=== PATIENT | male | born 1930 | race African-American/Black ===

== ENCOUNTER 2016-11-20 23:46 | Inpatient (IN) ==
[2016-11-21] MEDS ORDERED: PANTOPRAZOLE 40 MG VIAL IV STA (00:52)
[2016-11-21] MEDS ORDERED: ONDANSETRON 4 MG/2 ML VIAL IV STA (00:52)
[2016-11-21] MEDS ORDERED: SODIUM CHLORIDE 0.9% 500 ML IV STA (00:52)
--- NOTE | 2016-11-21 00:56 | Emergency Department Note ---
Rudy Juarez Rolonda, am scribing for, and in the presence of, Eamon Koch MD 00:54. August Juarez Charles R, MD, personally performed the services described in this documentation, ascribed by Ryenaldo Grant in my presence, and it is both accurate and complete . Arrival - Arrival Chief Complaint: GI Bleed/Rectal Stated Complaint: GI bleed ED Nursing Triage Note: C/O Blood in stool. Onset 1400 today while having a bowel movement. Pt was transferred from [facility] for further evaluation of GI bleeding and Low H/H. Mode of Arrival: Stretcher Source: Patient, Old Records Reviewed, RN Notes Reviewed - History of Present Illness HPI Narrative: Pt is an 86 y/o male who arried to the Ed via EMS for further evaluation of blood in the stool wit an onset of earlier today. Pt has a PMHx of HTN and a SHx of EtOh usage. Nurses' note states that pt was transferred from [facility]. He denies any pain, SOB, weakness, and smoking but confirms having a black stool. No other complaint/pain in ED. Onset (ago): hour(s) Consistency: constant Severity: moderate Severity scale (1-10): 4 Allergies/Adverse Reactions: Allergies Allergy/AdvReac Type Severity Reaction Status Date / Time No Known Allergies Allergy Verified 11/20/16 23:50 Home Medications: Home Medications Medication Instructions Recorded Confirmed Type Aspirin 325 mg PO DAILY 11/20/16 11/20/16 History Atorvastatin [Lipitor] 20 mg PO DAILY 11/20/16 11/20/16 History Furosemide Tab [Lasix Tab] 40 mg PO BID DIURETIC 11/20/16 11/20/16 History Losartan [Cozaar] 100 mg PO DAILY 11/20/16 11/20/16 History Review of System - Review of System 12 point system: reviewed and no additional remarkable complaints except as stated - Review of System Constitutional: Absent: chills, fever, weakness Head/Ears/Nose/Throat: Absent: earache, epistaxis Respiratory: Absent: cough, respiratory distress Cardiovascular: Absent: chest pain, dyspnea on exertion Gastrointestinal: Present: hematochezia (black). Absent: abdominal pain, nausea , vomiting, diarrhea Musculoskeletal: Absent: arm pain, back pain, leg pain, neck pain Skin: Absent: rash Neurological: Absent: headache, weakness, vertigo Medical,Surgical,& Family Hx - Medical History Cardio: History of: Hypertension - Social History Smoking Status: Never smoker Frequency of Alcohol Use: Occasionally Type of Drug Use: None Exam Vital Signs: Vital Signs Temperature 98.3 F 11/20/16 23:51 Pulse Rate 51 L 11/20/16 23:51 Respiratory Rate 16 11/20/16 23:51 Blood Pressure 145/60 11/20/16 23:51 O2 Sat by Pulse Oximetry 97 11/20/16 23:51 - General General appearance: alert, in no apparent distress - Head Head exam: Present: atraumatic, normocephalic - Eye Eye exam: Present: PERRL, EOMI. Absent: normal appearance (pale conjunctiva ) - ENT ENT exam: Present: mucous membranes moist. Absent: mucous membranes dry - Neck Neck exam: Present: full ROM. Absent: tenderness - Chest Chest inspection: Present: symmetric chest wall rise. Absent: tenderness - Respiratory Respiratory exam: Present: normal lung sounds bilaterally. Absent: wheezes - Cardiovascular Cardiovascular exam: Present: normal rhythm, bradycardia - Abdominal Exam Abdominal exam: Present: soft, normal bowel sounds. Absent: distention - Rectal Exam Rectal exam: Present: heme (+) stool, black stool - Extremities Exam Extremities exam: Present: full ROM. Absent: tenderness - Back Exam Back exam: Present: full ROM. Absent: tenderness - Neurological Exam Neurological exam: Present: alert, oriented X3, CN II-XII intact - Psychiatric Psychiatric exam: Present: normal affect, normal mood - Skin Skin exam: Present: warm, dry, intact, normal color. Absent: rash Course - Consultations Consultation #1: Hospitalist will admit patient Time: 00:55 Results - Labs Lab Results: I have reviewed the patients labs Labs: All results from previous facility reviewed Disposition Clinical Impression: Lower gastrointestinal hemorrhage, Melena Case discussed with: patient Disposition: Still a Patient Condition: Stable Time of Disposition: 00:55
[2016-11-21] MEDS ORDERED: ONDANSETRON 4 MG/2 ML VIAL ONE (01:13)
[2016-11-21] MEDS ORDERED: PANTOPRAZOLE 40 MG VIAL IV ONE (01:13)
[2016-11-21 01:15] LABS: Basophils % 0.3 % (0.0-0.8); Eosinophils # 0.1 10*3/uL (0.0-0.87); Eosinophils % 3.4 % (0.00-10.9); Hematocrit 25.1 VOL% (42.0-52.0); Hemoglobin 8.1 GM/DL (14.0-18.0); Immature Granulocytes % 0.3 %; Immature Granulocytes Absolute 0.01 #; Lymphocytes # 0.9 10*3/uL (1.4-4.0); Lymphocytes % 22.8 % (21.2-54.2); Mean Corpuscular HGB Conc 32.3 GM/DL (32-36); Mean Corpuscular Hemoglobin 29 PG (27-34); Mean Corpuscular Volume 90.9 FL (87-102); Mean Platelet Volume 10.4 FL (9.6-12.0); Monocytes # 0.4 10*3/uL (0.11-0.8); Monocytes % 9.6 % (1.7-12.7); Neutrophils # 2.5 10*3/uL (1.4-7.4); Neutrophils % 63.6 % (38.7-73.9); Platelet Count 148 T/CUMM (130-400); Red Blood Count 2.76 MC/CUMM (3.8-5.5); Red Cell Distribution Width 14.3 % (9.3-17.3); White Blood Count 3.9 T/CUMM (4-12)
[2016-11-21] MEDS ORDERED: ONDANSETRON 4 MG/2 ML VIAL IV PRN (01:15)
[2016-11-21] MEDS ORDERED: ACETAMINOPHEN 325 MG TABLET PO PRN (01:15)
[2016-11-21 01:24] LABS: INR 1.2; PT Patient Result 12.8 SECS
--- NOTE | 2016-11-21 01:38 | Hospitalist History & Physical ---
Assessment and Plan - Time spent with patient Time spent with patient: Greater than 30 minutes (1) Lower gastrointestinal hemorrhage Status: Acute Current Visit: Yes (2) Atrial fibrillation Status: Acute Current Visit: Yes (3) CHF (congestive heart failure) Status: Acute Assessment and plan: The patient will be admitted to the hospital under the service of the hospitalist with consult GI. Patient received a total of 1000 normal saline bolus between here and the [facility] facility will hold off on IV fluids at this time given patient's history of chest of heart failure. Will hold n.p.o. until GI evaluation. Protonix 40 mg IV twice daily. Type and screen has been ordered , patient asymptomatic at this time will hold off on blood transfusion. Home medications have been reviewed and reconciled and reordered as appropriate. SCDs have been ordered for DVT prophylaxis. Current Visit: No Qualifiers: Congestive heart failure type: unspecified congestive heart failure type Congestive heart failure chronicity: chronic Qualified Code(s): I50.9 - Heart failure, unspecified History of Present Illness Chief complaint: Lower GI Bleed History of present illness: Mr. Mayers is a 86 year old male -Tong[place] male with past medical history atrial fibrillation, pacemaker placement, hypertension, congestive heart failure , severe anemia requiring blood transfusion, and alcohol use presents to the ED from [facility] with chief complaint of lower GI bleed. The patient reports approximately 2 PM today his stomach was "growling" and he went to the bathroom and he passed a large amount of bright red blood. He reports between the urine presenting at the left the [facility] facility approximately 9 PM he had 2 more bowel movements this time the blood became darker and darker. He denies nausea, vomiting, fatigue, or syncopal episodes. Labs drawn at the [facility] included WBCs of 4.2, hemoglobin 8.7, hematocrit 27.2, platelet count 162, sodium 141, potassium 3.2, BUN 14, creatinine 1.10, glucose 123, stool for occult blood was positive. His potassium was replaced at the [facility] with 40 milliequivalents p.o. and he was started on IV fluids. In the ED here at [place] repeat H&H reveals 8.1/25.1 with INR of 1.2, sodium 144, potassium 3.6, BUN 15, creatinine 1.10, magnesium 2.3, calcium 8.2, albumin 3.1. Type and screen have been ordered and pending. [facility] under service the hospital for further evaluation treatment. Home Medications Medication Instructions Recorded Confirmed Type Aspirin 325 mg PO DAILY 11/20/16 11/20/16 History Atorvastatin [Lipitor] 20 mg PO DAILY 11/20/16 11/20/16 History Furosemide Tab [Lasix Tab] 40 mg PO BID DIURETIC 11/20/16 11/20/16 History Losartan [Cozaar] 100 mg PO DAILY 11/20/16 11/20/16 History Allergies Allergy/AdvReac Type Severity Reaction Status Date / Time No Known Allergies Allergy Verified 11/20/16 23:50 Medical,Surgical,& Family Hx - Medical History Cardio: History of: Cardiac Dysrhythmia (A-fib), CHF, Hypertension, Pacemaker Gastrointestinal: History of: Gastrointestinal Bleed - Family History Family History: Reports;: Family Hypertension - Social History Smoking Status: Never smoker Frequency of Alcohol Use: Occasionally Type of Drug Use: None Marital Status: Single - Cardiovascular Cardiovascular: Present: edema - Gastrointestinal Gastrointestinal: Present: hematochezia Exam - Constitutional Vitals: Period Temp Pulse Resp BP Sys/Barnes Pulse Ox Last 24 Hr 98.3 F-98.3 F 51-51 16-16 145-145/60-60 97 General appearance: normal weight - Head Head exam: Present: normal inspection - Eye Pupils: Present: JADYN - ENT ENT exam: Present: other (No teeth ) - Neck Neck exam: Present: normal inspection - Respiratory Respiratory exam: Present: clear to auscultation bilaterally - Cardiovascular Cardiovascular exam: Present: bradycardia, other (Pacemaker to left upper chest wall ) - GI/Abdominal GI/Abdominal exam: Present: normal bowel sounds - Extremities Exam Extremities exam: Present: edema (3+ pitting edema ) - Back Exam Back exam: Present: normal inspection - Neurological Exam Neurological exam: Present: alert, oriented X3 - Psychiatric Psychiatric exam: Present: normal affect, normal mood - Skin Skin exam: Present: normal color Results - Labs CBC & BMP: 11/21/16 01:01 Lab Results: I have reviewed the past 24 hour labs Quality Measures - VTE Contraindication to Pharmacological VTE Prophylaxis: Active Bleeding
[2016-11-21 01:46] LABS: Albumin 3.1 G/DL (3.4-5.0); Bilirubin,Total 0.7 MG/DL (0.2-1.0); Calcium 8.2 MG/DL (8.5-10.1); Magnesium 2.3 MG/DL (1.8-2.4); Osmolality,Calculated 286.8 MOS/KG (273-304); Potassium 3.6 MMOL/L (3.5-5.1); Total Protein 5.7 G/DL (6.4-8.3); Troponin I Only 0.018 NG/ML (0.00-0.045)
[2016-11-21] MEDS ORDERED: PNEUMOCOCCAL VACCINE (13 VALENT) 0.5 ML SYRINGE IM ONE (03:06)
[2016-11-21 04:17] LABS: Eosinophils # 0.1 10*3/uL (0.0-0.87); Hematocrit 25.3 VOL% (42.0-52.0); Lymphocytes % 27.6 % (21.2-54.2); Mean Corpuscular HGB Conc 31.6 GM/DL (32-36); Mean Corpuscular Hemoglobin 29 PG (27-34); Mean Platelet Volume 10.8 FL (9.6-12.0); Monocytes # 0.3 10*3/uL (0.11-0.8); Monocytes % 9.4 % (1.7-12.7); Neutrophils # 2.1 10*3/uL (1.4-7.4); Platelet Count 152 T/CUMM (130-400); Red Blood Count 2.78 MC/CUMM (3.8-5.5); Red Cell Distribution Width 14.3 % (9.3-17.3); White Blood Count 3.5 T/CUMM (4-12)
[2016-11-21 04:49] LABS: Albumin 3.1 G/DL (3.4-5.0); Bilirubin,Total 1.4 MG/DL (0.2-1.0); Calcium 8.5 MG/DL (8.5-10.1); Osmolality,Calculated 289.6 MOS/KG (273-304); Potassium 3.7 MMOL/L (3.5-5.1); Total Protein 5.9 G/DL (6.4-8.3)
[2016-11-21] MEDS ORDERED: FUROSEMIDE 40 MG TABLET PO SCH (08:00)
[2016-11-21 08:18] LABS: Hematocrit 22.9 VOL% (42.0-52.0); Hemoglobin 7.4 GM/DL (14.0-18.0)
[2016-11-21] MEDS ORDERED: SODIUM CHLORIDE 0.9% 250 ML IV PRN (08:26)
[2016-11-21] MEDS: ATORVASTATIN 20 MG TABLET PO SCH (09:37)
[2016-11-21] MEDS: LOSARTAN 50 MG TABLET PO SCH (09:37)
--- NOTE | 2016-11-21 10:30 | Gastrointestinal Consult Note ---
Assessment and Plan - Time spent with patient Time spent with patient: Greater than 30 minutes (1) Hematochezia Status: Acute Current Visit: Yes (2) Other specified counseling Status: Acute Current Visit: Yes History of Present Illness History of present illness: Mr. Mayers is a 86 year old male Home Medications Medication Instructions Recorded Confirmed Type Aspirin 325 mg PO DAILY 11/20/16 11/20/16 History Atorvastatin [Lipitor] 20 mg PO DAILY 11/20/16 11/20/16 History Furosemide Tab [Lasix Tab] 40 mg PO BID DIURETIC 11/20/16 11/20/16 History Losartan [Cozaar] 100 mg PO DAILY 11/20/16 11/20/16 History Allergies Allergy/AdvReac Type Severity Reaction Status Date / Time No Known Allergies Allergy Verified 11/20/16 23:50 Medical,Surgical,& Family Hx - Medical History Cardio: History of: Cardiac Dysrhythmia (A-fib), CHF, Hypertension, Pacemaker HEENT: History of: Ear Problem (Hard of Hearing) Gastrointestinal: History of: Gastrointestinal Bleed Musculoskeletal: Comment Only: Musculoskeletal Problems ("joints get stiff") - Family History Family History: Reports;: Family Hypertension - Social History Smoking Status: Never smoker Frequency of Alcohol Use: Occasionally Type of Drug Use: None Exam - Constitutional Vitals: Period Temp Pulse Resp BP Sys/Barnes Pulse Ox Last 24 Hr 96.4 F-98.3 F 51-68 16-18 129-147/60-79 95-100 Results - Labs CBC & BMP: 11/21/16 16:19 11/21/16 03:47 Quality Measures - VTE Contraindication to Pharmacological VTE Prophylaxis: Active Bleeding Note Addendum: PLEASE NOTE -- automatic citation of patient information is unavoidable in this electronic note. I have made a reasonable effort to review the information cited , but it is not a part of my evaluation, impression, or recommendation unless specifically discussed in the dictated text that follows. As well, voice recognition software was used in the creation of this clinical note. Reasonable effort was made to identify and correct gross errors. Despite proofreading, errors in ramp manager may be present, including nonsense verbiage at times. If you encounter such an error, please contact me at [phone] for discussion and correction. -- Rachel Chief complaint: hematochezia History of present illness: This is a new patient, a 86-year-old male seen by consultation for evaluation of suspected lower gastrointestinal bleeding. The patient is admitted to the hospitalist service under the care of Dr. Thompson with a primary diagnosis of same. The patient was admitted via transfer from an outlying emergency department through our emergency department with primary complaint of abdominal discomfort with associated large volume of bright red blood per rectum. This began around 2 PM yesterday and he has had two additional episodes of blood per rectum but both have been darker colored red. Evaluation at the outlying facility revealed moderate anemia with hemoglobin of 8.7 g/dL as well as positive fecal occult blood testing. Upon arrival at our facility, hemoglobin had trended down to 8.1 g/dL. He has not been transfused at this point but has benefited from careful crystalloid volume management as he has a history of congestive heart failure. At present he reports being comfortable and has not had any further bowel movements. He had mild pain before the initial bloody bowel movement but has had nonsense. He does not recall having had colonoscopy in the past. Patient denies fever, chills, night sweats, rigors, headache, dizziness, neck pain, visual changes, redness of the eyes, dysphagia, odynophagia, difficulty chewing, chest pain, shortness of breath, weight loss, nausea, vomiting, regurgitation, hematemesis, proctalgia, constipation, dysuria, skin changes, temperature regulation issues, flushing, easy bleeding/bruising, musculoskeletal pain, mental status change, numbness/weakness in the extremities , yellowing of the eyes/skin, cutaneous eruptions, allergies to food or drug, and other complaints in general. Review of systems: 12 point review of systems was negative except as documented above. Outpatient medications: losartan, Lipitor, aspirin, Lasix Inpatient medications: Tylenol, Lipitor, losartan, Zofran, Protonix, normal saline infusion Past Medical History: atrial fibrillation, congestive heart failure, hypertension, pacemaker, gastrointestinal bleeding Social history: negative tobacco. Negative alcohol Family history: no gastrointestinal cancers Physical examination: Vital Signs: Current vital signs reviewed and documented above. General Appearance: well-appearing. Not acutely ill. Head: Normocephalic. Neck: Palpation of the neck revealed no abnormalities. Eyes: No scleral icterus. No scleral injection. No conjunctival pallor. Oral Cavity: Odor of breath was normal. No drooling was observed. Lips showed no abnormalities. Floor of the mouth showed no abnormalities. Pharynx: Oropharynx was normal. Lungs: Respiration rhythm and depth was normal. Cardiovascular: Heart rate and rhythm were normal. No murmurs were appreciated. Abdomen: abdomen was not distended. Abdominal palpation revealed no tenderness and no hepatosplenomegaly. Ascites was not discovered. Abdominal auscultation revealed positive bowel sounds. Musculoskeletal System: Musculoskeletal system was grossly normal. Neurological: level of consciousness was normal. Speech was normal. Skin: General appearance was normal. Color and pigmentation were normal. No skin lesions. Laboratory: hemoglobin 8.1 --> 7.4, platelets 152, PT 12.8, INR 1.2, ALT 16, AST 18, alkaline phosphatase 60, total bilirubin 1.4, albumin 3.1 Radiology: reviewed Impressions: 1. Hematochezia -- the differential diagnosis includes diverticular bleeding, infectious/inflammatory enterocolitis, arteriovenous malformation, hemorrhoidal bleeding, colon polyps (including cancer), and upper gastrointestinal bleeding. I recommend serial hemoglobin and hematocrit monitoring with transfusion as indicated. I recommend aggressive crystalloid resuscitation with careful attention to underlying congestive heart failure, as indicated. I recommend intravenous proton pump inhibitor. Patient will need colonoscopy with timing dependent on clinical progress. If bleeding continues, this will likely need to be done during this admission. If not, we could consider outpatient colonoscopy once patient is adequately resuscitated and transfused. 2. Other specified counseling -- The patient was seen for greater than 30 minutes. The patient was counseled for greater than 50% of this time regarding differential diagnosis, likely diagnosis, diagnostic and therapeutic alternatives, risks/benefits/alternatives of medications and procedures, and plan of care generally. The patient expressed understanding and wishes to proceed. Recommendations: -- aggressive crystalloid resuscitation -- transfusion as indicated -- serial hemoglobin and hematocrit monitoring -- consider colonoscopy with timing dependent on clinical evolution -- thank you for consultation. We will continue to follow with you.
--- NOTE | 2016-11-21 11:02 | Hospitalist Progress Note ---
Assessment and Plan (1) Lower gastrointestinal hemorrhage Status: Acute Assessment and plan: Consult GI. Tranfuse as needed. NPO for now. Monitor h&h. Continue PPI. Current Visit: Yes (2) CHF (congestive heart failure) Status: Acute Assessment and plan: BNP 206. Edema present. Continue to monitor. Current Visit: No Qualifiers: Congestive heart failure type: unspecified congestive heart failure type Congestive heart failure chronicity: chronic Qualified Code(s): I50.9 - Heart failure, unspecified Hospitalist: Subjective Interval history: Mr. Mayers is a 86 yr AA male that presented from an outside facility with complaints of a rectal bleeding. Pt. was admitted to our service. He was seen and examined with Dr. Thompson. RN was also present at bedside. Mr. Mayers was receiving transfusion of blood and tolerating well. No complaints at this time. No problems with breathing or pain. GI has been consulted to evaluate. We will continue to monitor patient. Exam - Constitutional Vitals: Period Temp Pulse Resp BP Sys/Barnes Pulse Ox Last 24 Hr 96.4 F-98.3 F 51-68 16-18 129-147/60-79 95-100 General appearance: normal weight, no acute distress - Head Head exam: Present: normal inspection, normocephalic - Eye Eye exam: Present: EOMI. Absent: scleral icterus Pupils: Present: JADYN. Absent: fixed - ENT ENT exam: Present: normal exam - Neck Neck exam: Present: normal inspection - Respiratory Respiratory exam: Present: clear to auscultation bilaterally. Absent: wheezes - Cardiovascular Cardiovascular exam: Present: regular rate and rhythm - GI/Abdominal GI/Abdominal exam: Present: normal bowel sounds, soft. Absent: tenderness - Extremities Exam Extremities exam: Present: normal capillary refill, full ROM - Neurological Exam Neurological exam: Present: alert, oriented X3 - Psychiatric Psychiatric exam: Present: normal affect, normal mood - Skin Skin exam: Present: normal color, warm, dry Results - Labs CBC & BMP: 11/21/16 08:00 11/21/16 03:47 Lab Results: I have reviewed the past 24 hour labs Quality Measures - VTE Contraindication to Pharmacological VTE Prophylaxis: Active Bleeding
--- NOTE | 2016-11-21 11:47 | EKG Report ---
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
[2016-11-21] MEDS: PANTOPRAZOLE 40 MG VIAL IV SCH ×2 (12:47→20:28)
[2016-11-21 16:53] LABS: Hematocrit 26.7 VOL% (42.0-52.0); Hemoglobin 8.9 GM/DL (14.0-18.0)
[2016-11-22 04:34] LABS: Basophils % 0.5 % (0.0-0.8); Eosinophils # 0.1 10*3/uL (0.0-0.87); Eosinophils % 3.5 % (0.00-10.9); Hematocrit 26.8 VOL% (42.0-52.0); Hemoglobin 8.8 GM/DL (14.0-18.0); Immature Granulocytes % 0.3 %; Immature Granulocytes Absolute 0.01 #; Lymphocytes # 0.9 10*3/uL (1.4-4.0); Lymphocytes % 24.5 % (21.2-54.2); Mean Corpuscular HGB Conc 32.8 GM/DL (32-36); Mean Corpuscular Hemoglobin 29 PG (27-34); Mean Corpuscular Volume 89.3 FL (87-102); Monocytes # 0.4 10*3/uL (0.11-0.8); Monocytes % 9.8 % (1.7-12.7); Neutrophils # 2.3 10*3/uL (1.4-7.4); Neutrophils % 61.4 % (38.7-73.9); Platelet Count 117 T/CUMM (130-400); Red Cell Distribution Width 14.9 % (9.3-17.3); White Blood Count 3.7 T/CUMM (4-12)
[2016-11-22 05:05] LABS: Calcium 8.4 MG/DL (8.5-10.1); Magnesium 2.3 MG/DL (1.8-2.4); Osmolality,Calculated 285.7 MOS/KG (273-304); Potassium 4.2 MMOL/L (3.5-5.1)
[2016-11-22] MEDS: ATORVASTATIN 20 MG TABLET PO SCH (08:39)
[2016-11-22] MEDS: PANTOPRAZOLE 40 MG VIAL IV SCH ×2 (08:39→21:02)
[2016-11-22] MEDS: LOSARTAN 50 MG TABLET PO SCH (08:39)
--- NOTE | 2016-11-22 12:00 | Hospitalist Progress Note ---
Assessment and Plan (1) Lower gastrointestinal hemorrhage Status: Acute Assessment and plan: GI on board Transfused 2 units yesterday, without appropriate response Continue to monitor Current Visit: Yes (2) Atrial fibrillation Status: Chronic Current Visit: Yes (3) CHF (congestive heart failure) Status: Chronic Current Visit: No Qualifiers: Congestive heart failure type: unspecified congestive heart failure type Congestive heart failure chronicity: chronic Qualified Code(s): I50.9 - Heart failure, unspecified Hospitalist: Subjective Interval history: No acute events overnight. Reports a bowel movement this morning with a small amount of blood. He has no other complaints. Exam - Constitutional Vitals: Period Temp Pulse Resp BP Sys/Barnes Pulse Ox Last 24 Hr 97.1 F-98.1 F 57-74 18-20 126-152/66-84 92-99 General appearance: normal weight - Head Head exam: Present: normocephalic, atraumatic - Eye Eye exam: Present: EOMI Pupils: Present: JADYN - ENT ENT exam: Present: normal exam - Neck Neck exam: Present: normal inspection - Respiratory Respiratory exam: Present: clear to auscultation bilaterally. Absent: rhonchi, wheezes - Cardiovascular Cardiovascular exam: Present: regular rate and rhythm - GI/Abdominal GI/Abdominal exam: Present: normal bowel sounds, soft. Absent: tenderness, rebound - Extremities Exam Extremities exam: Present: normal inspection - Back Exam Back exam: Present: normal inspection - Neurological Exam Neurological exam: Present: alert, oriented X3 - Psychiatric Psychiatric exam: Present: normal affect, normal mood - Skin Skin exam: Present: warm, intact Results - Labs CBC & BMP: 11/22/16 03:25 11/22/16 03:25 Quality Measures - VTE Contraindication to Pharmacological VTE Prophylaxis: Active Bleeding
--- NOTE | 2016-11-22 13:47 | Gastrointestinal Progress Note ---
Assessment and Plan - Time spent with patient Time spent with patient: Less than 30 minutes (1) Hematochezia Status: Acute Current Visit: Yes (2) Other specified counseling Status: Acute Current Visit: Yes Exam (Progress Note) - Constitutional Vitals: Period Temp Pulse Resp BP Sys/Barnes Pulse Ox Last 24 Hr 97.1 F-98.1 F 59-74 18-20 126-152/72-79 92-99 Results - Labs CBC & BMP: 11/22/16 03:25 11/22/16 03:25 Note Addendum: PLEASE NOTE -- automatic citation of patient information is unavoidable in this electronic note. I have made a reasonable effort to review the information cited , but it is not a part of my evaluation, impression, or recommendation unless specifically discussed in the dictated text that follows. As well, voice recognition software was used in the creation of this clinical note. Reasonable effort was made to identify and correct gross errors. Despite proofreading, errors in chick grader may be present, including nonsense verbiage at times. If you encounter such an error, please contact me at for discussion and correction. -- Rachel Chief complaint: hematochezia Subjective: This is a follow-up patient, a 86-year-old male seen by consultation for evaluation of suspected lower gastrointestinal bleeding. The patient reports one bowel movement today with a small amount of blood. The patient received two units of packed red blood cells yesterday and hemoglobin has remained stable overnight. The patient is comfortable at present. He is tolerating oral intake. Review of systems: 12 point review of systems was negative except as documented above. Inpatient medications: Tylenol, Lipitor, losartan, Zofran, Protonix, normal saline infusion Physical examination: Vital Signs: Current vital signs reviewed and documented above. General Appearance: well-appearing. Not acutely ill. Head: Normocephalic. Neck: Palpation of the neck revealed no abnormalities. Eyes: No scleral icterus. No scleral injection. No conjunctival pallor. Oral Cavity: Odor of breath was normal. No drooling was observed. Lips showed no abnormalities. Floor of the mouth showed no abnormalities. Pharynx: Oropharynx was normal. Lungs: Respiration rhythm and depth was normal. Cardiovascular: Heart rate and rhythm were normal. Abdomen: abdomen was not distended. Abdominal palpation revealed no tenderness and no hepatosplenomegaly. Ascites was not discovered. Abdominal auscultation revealed positive bowel sounds. Musculoskeletal System: Musculoskeletal system was grossly normal. Neurological: level of consciousness was normal. Speech was normal. Skin: General appearance was normal. Color and pigmentation were normal. No skin lesions. Laboratory: hemoglobin 7.4 --> transfusion --> 8.9 --> 8.8, platelets 117 Radiology: reviewed Impressions: 1. Hematochezia -- blood counts have remained stable overnight. The patient reports one bowel movement with a small amount of blood. Patient may need colonoscopy with timing dependent on clinical progress. I have offered to do this tomorrow but the patient would prefer to postpone and accomplish as an outpatient. I think this is fine as long as he does not have any further bleeding and maintains his blood counts. If bleeding continues, this will likely need to be done during this admission. 2. Other specified counseling -- The patient was seen for greater than 30 minutes. The patient was counseled for greater than 50% of this time regarding differential diagnosis, likely diagnosis, diagnostic and therapeutic alternatives, risks/benefits/alternatives of medications and procedures, and plan of care generally. The patient expressed understanding and wishes to proceed. Recommendations: -- aggressive crystalloid resuscitation -- transfusion as indicated -- serial hemoglobin and hematocrit monitoring -- consider colonoscopy with timing dependent on clinical evolution (offered tomorrow but postponed per patient request) -- thank you for consultation. We will continue to follow with you.
[2016-11-23 06:14] LABS: Basophils % 0.3 % (0.0-0.8); Eosinophils # 0.1 10*3/uL (0.0-0.87); Eosinophils % 3.5 % (0.00-10.9); Hematocrit 26.2 VOL% (42.0-52.0); Hemoglobin 8.8 GM/DL (14.0-18.0); Immature Granulocytes % 0.3 %; Immature Granulocytes Absolute 0.01 #; Lymphocytes # 0.7 10*3/uL (1.4-4.0); Lymphocytes % 19.8 % (21.2-54.2); Mean Corpuscular HGB Conc 33.6 GM/DL (32-36); Mean Corpuscular Hemoglobin 30 PG (27-34); Mean Corpuscular Volume 88.2 FL (87-102); Mean Platelet Volume 10.6 FL (9.6-12.0); Monocytes # 0.3 10*3/uL (0.11-0.8); Monocytes % 8.8 % (1.7-12.7); Neutrophils # 2.5 10*3/uL (1.4-7.4); Neutrophils % 67.3 % (38.7-73.9); Platelet Count 135 T/CUMM (130-400); Red Blood Count 2.97 MC/CUMM (3.8-5.5); Red Cell Distribution Width 14.5 % (9.3-17.3); White Blood Count 3.7 T/CUMM (4-12)
[2016-11-23 06:51] LABS: Calcium 8.1 MG/DL (8.5-10.1); Magnesium 2.2 MG/DL (1.8-2.4); Potassium 3.7 MMOL/L (3.5-5.1)
--- NOTE | 2016-11-23 08:44 | Physician Query Form ---
CLICK EDIT DOCUMENT TO SELECT QUERY ANSWER --> OK --> SIGN Lee Ann Salazar RN, CCDS Certified Clinical Industrial Diamond Polisher W) [phone] (f) [phone] [email or web address] PROVIDERS: Make your selection(s) from the choices in EACH section by typing an "x" and enter comments in the comment section. Please use your independent medical judgment in providing your response. This request does not imply that any particular answer is desired or expected. CLINICAL INDICATORS: (Providers should not edit this section) The medical record indicates that the patient was admitted with lower GI bleeding, CHF "acute", BNP of 206#, No chest x-ray seen, edema present and the patient is on PO Lasix. "will hold off on IV fluids at this time given patient's history of chest of heart failure" Please provide further specificity regarding CHF. Acuity ( ) Acute (x ) Chronic ( ) Acute on chronic ( ) Other: TYPE: ( ) Systolic (HFrEF - heart failure with reduced systolic function/EF) ( ) Diastolic (HFpEF - heart failure with preserved systolic function/EF) ( ) Combined Systolic/Diastolic ( ) Other, please specify: (x ) Clinically unable to determine ( ) The patient does NOT have CHF COMMENTS: PLEASE ALSO DOCUMENT RESPONSE IN PROGRESS NOTES AND/OR DISCHARGE SUMMARY Use of terms such as suspected, likely, or probable (associated with a specific diagnosis that is being evaluated, monitored, or treated as if it exists) are acceptable and can be restated in the discharge summary if not ruled out. MTDD
--- NOTE | 2016-11-23 08:44 | Physician Query Form ---
CLICK EDIT DOCUMENT TO SELECT QUERY ANSWER --> OK --> SIGN Lee Ann Salazar RN, CCDS Certified Clinical Vision Specialist W) [phone] (f) [phone] [email or web address] PROVIDERS: Make your selection(s) from the choices in EACH section by typing an "x" and enter comments in the comment section. Please use your independent medical judgment in providing your response. This request does not imply that any particular answer is desired or expected. CLINICAL INDICATORS: (Providers should not edit this section) The medical record indicates that the patient was admitted with lower GI bleeding, HH dropped to 7.4/22.9 and the patient was given two units of blood. Based on the above, could you clarify which of the following conditions you are evaluating, treating, and/or monitoring? ( x) Blood loss anemia ( ) acute ( ) chronic ( ) acute on chronic ( ) Acute blood loss anemia on baseline chronic anemia ( ) Acute blood loss anemia as a complication of a procedure ( ) Iron deficiency anemia not associated with blood loss ( ) Dilutional anemia due to IV fluids ( ) Anemia due to chemotherapy ( ) Anemia due to neoplastic disease ( ) Anemia due to chronic kidney disease ( ) Pernicious anemia ( ) Aplastic anemia ( ) Hemolytic anemia ( ) immune ( ) non-immune - please specify cause: ( ) Anemia due to other condition, please specify: ( ) Clinically unable to determine COMMENTS: PLEASE ALSO DOCUMENT RESPONSE IN PROGRESS NOTES AND/OR DISCHARGE SUMMARY Use of terms such as suspected, likely, or probable (associated with a specific diagnosis that is being evaluated, monitored, or treated as if it exists) are acceptable and can be restated in the discharge summary if not ruled out. MTDD
[2016-11-23] MEDS: PANTOPRAZOLE 40 MG VIAL IV SCH ×2 (10:14→20:56)
[2016-11-23] MEDS: LOSARTAN 50 MG TABLET PO SCH (10:14)
[2016-11-23] MEDS: ATORVASTATIN 20 MG TABLET PO SCH (10:14)
--- NOTE | 2016-11-23 11:08 | Gastrointestinal Progress Note ---
<RockySue Reuben - Last Filed: 11/23/16 11:06> Assessment and Plan (1) Hematochezia Status: Acute Assessment and plan: 11/23-no further rectal bleeding reported since yesterday morning. No abdominal pain. Hemoglobin is holding stable at present time. No prior endoscopy. Patient willing to proceed with any further workup necessary. Plan an addendum to follow Dr. Rose. Current Visit: Yes Gastroenterology - PN: Subj Interval history: CC: Hematochezia Patient is seen awake and alert lying in bed. States he had an uneventful night and rested well. Denies any abdominal pain, nausea or vomiting. States he has had no further bleeding since his last bowel movement on yesterday morning which he reports to be dark blood only. Hemoglobin is 8.8 following 2 units of packed red blood cells. He has no prior history of endoscopy in the past. Abdomen is soft, nontender. Patient states that he is willing to proceed with any further workup that we feel is necessary at this time. He does state that he has never had GI bleeding in the past that he can recall and has no family history of colon cancer. He is tolerating his diet well at present time. ROS: Denies shortness of breath or chest pain Exam (Progress Note) - Constitutional Vitals: Period Temp Pulse Resp BP Sys/Barnes Pulse Ox Last 24 Hr 97.1 F-98.0 F 59-62 18-20 127-147/72-82 96-100 General appearance: normal weight, no acute distress - Head Head exam: Present: normal inspection, normocephalic - Eye Eye exam: Present: other (Lids and conjunctive are unremarkable). Absent: scleral icterus - ENT ENT exam: Present: normal exam, normal oropharynx - Neck Neck exam: Present: normal inspection - Respiratory Respiratory exam: Present: clear to auscultation bilaterally. Absent: rales, rhonchi, wheezes - Cardiovascular Cardiovascular exam: Present: regular rate and rhythm. Absent: diastolic murmur , JVD, systolic murmur - GI/Abdominal GI/Abdominal exam: Present: normal bowel sounds, soft. Absent: ascites, distended, mass, organomegaly, tenderness - Extremities Exam Extremities exam: Present: normal inspection, full ROM - Back Exam Back exam: Present: normal inspection - Neurological Exam Neurological exam: Present: alert, oriented X3 - Psychiatric Psychiatric exam: Present: normal affect, normal mood - Skin Skin exam: Present: normal color, warm, dry Results - Labs CBC & BMP: 11/23/16 05:32 11/23/16 05:32 Lab Results: I have reviewed the past 24 hour labs <Matt Rose - Last Filed: 11/23/16 18:05> Exam (Progress Note) - Constitutional Vitals: Period Temp Pulse Resp BP Sys/Barnes Pulse Ox Last 24 Hr 97.3 F-98.5 F 60-65 18-20 127-176/72-83 97-100 Results - Labs CBC & BMP: 11/23/16 05:32 11/23/16 05:32
--- NOTE | 2016-11-23 12:24 | Hospitalist Progress Note ---
Assessment and Plan (1) Lower gastrointestinal hemorrhage Status: Acute Assessment and plan: GI on board Transfused 2 units 11/21/16 H/H stable Continue to monitor Current Visit: Yes (2) Atrial fibrillation Status: Chronic Current Visit: Yes (3) CHF (congestive heart failure) Status: Chronic Current Visit: No Qualifiers: Congestive heart failure type: unspecified congestive heart failure type Congestive heart failure chronicity: chronic Qualified Code(s): I50.9 - Heart failure, unspecified Hospitalist: Subjective Interval history: No acute events overnight. No more bloody BM since yesterday morning. H/H remains stable. Exam - Constitutional Vitals: Period Temp Pulse Resp BP Sys/Barnes Pulse Ox Last 24 Hr 97.3 F-98.0 F 60-62 18-20 127-147/72-82 97-100 General appearance: normal weight - Head Head exam: Present: normocephalic, atraumatic - Eye Eye exam: Present: EOMI Pupils: Present: JADYN - ENT ENT exam: Present: normal exam - Neck Neck exam: Present: normal inspection - Respiratory Respiratory exam: Present: clear to auscultation bilaterally. Absent: rhonchi, wheezes - Cardiovascular Cardiovascular exam: Present: regular rate and rhythm - GI/Abdominal GI/Abdominal exam: Present: normal bowel sounds, soft. Absent: tenderness, rebound - Extremities Exam Extremities exam: Present: normal inspection - Back Exam Back exam: Present: normal inspection - Neurological Exam Neurological exam: Present: alert, oriented X3 - Psychiatric Psychiatric exam: Present: normal affect, normal mood - Skin Skin exam: Present: warm, intact Results - Labs CBC & BMP: 11/23/16 05:32 11/23/16 05:32 Quality Measures - VTE Contraindication to Pharmacological VTE Prophylaxis: Active Bleeding
[2016-11-23] MEDS ORDERED: POLYETHYLENE GLYCOL POWDER 255 GM BOTTLE PO ONE (14:30)
[2016-11-23] MEDS ORDERED: BISACODYL 5 MG TABLET PO ONE (14:30)
[2016-11-23] MEDS ORDERED: MAGNESIUM CITRATE 300 ML BOTTLE PO ONE (21:00)
[2016-11-24 06:04] LABS: Basophils % 0.5 % (0.0-0.8); Eosinophils # 0.1 10*3/uL (0.0-0.87); Eosinophils % 3.2 % (0.00-10.9); Hematocrit 28.6 VOL% (42.0-52.0); Hemoglobin 9.3 GM/DL (14.0-18.0); Immature Granulocytes % 0.3 %; Immature Granulocytes Absolute 0.01 #; Lymphocytes # 0.8 10*3/uL (1.4-4.0); Lymphocytes % 21.3 % (21.2-54.2); Mean Corpuscular HGB Conc 32.5 GM/DL (32-36); Mean Corpuscular Hemoglobin 29 PG (27-34); Mean Corpuscular Volume 89.9 FL (87-102); Mean Platelet Volume 11.1 FL (9.6-12.0); Monocytes # 0.4 10*3/uL (0.11-0.8); Monocytes % 11.1 % (1.7-12.7); Neutrophils # 2.4 10*3/uL (1.4-7.4); Neutrophils % 63.6 % (38.7-73.9); Platelet Count 157 T/CUMM (130-400); Red Blood Count 3.18 MC/CUMM (3.8-5.5); Red Cell Distribution Width 14.5 % (9.3-17.3); White Blood Count 3.8 T/CUMM (4-12)
[2016-11-24] MEDS ORDERED: LIDOCAINE 2% 5 ML VIAL ONE (11:52)
[2016-11-24] MEDS ORDERED: PROPOFOL 200 MG/20 ML VIAL IV ONE (11:52)
--- NOTE | 2016-11-24 12:13 | History and Physical Update ---
History and Physical Update - Physical Exam Mental Status: alert and oriented Heart: regular rate and rhythm Lung: clear to auscultation Abdomen: within normal limits Vitals: within normal limits
--- NOTE | 2016-11-24 12:16 | Operative Note ---
Date of procedure: 11/24/16 Pre-op diagnosis: Hematochezia Procedure: Colonoscopy with polypectomy 86-year-old gentleman admitted with painless hematochezia now for colonoscopy to further evaluate for suspected diverticular bleeding. He has never had a screening colonoscopy done. Informed consent was obtained for the patient He was sedated with MAC anesthesia per anesthesia protocol. Patient was placed in left lateral decubitus position digital exam was normal no prostatic hypertrophy or nodularity is felt no rectal masses. The Olympus flexible video colonoscope [place] canal vessel direct vision level cecum identify obvious ago valve appendiceal orifice. Prep fair to good Withdrawal time 7 minutes Findings: Cecum normal identify the ileocecal valve appendiceal orifice Terminal ileum-normal Ascending colon diverticulosis without active bleeding. He additionally had a 5 mm proximal ascending polyp that was hot biopsy fulgurated Transverse colon diverticulosis without active bleeding Descending colon-diverticulosis without active bleeding Sigmoid colon diverticulosis without active bleeding Rectum-normal to direct retroflexed views. The procedure terminated placed our procedure well his discharge recovery in good condition Postop diagnosis: 1. Colon [id number] polyp path 2. Diverticulosis-suspect this to be the source of his painless hematochezia typically these episodes are self-limited. No specific therapy is needed at this time. Maintain adequate fiber and fluid intake. Avoid nonsteroidals and anticoagulants. If bleeding recurs consider bleeding scan to attempt to localize for possibility of either surgical or interventional radiology intervention. 3. Okay to go from my standpoint he can follow-up with his primary care physician and call if needed. Anesthesia: MAC Surgeon / Physician: Matt Rose Estimated blood loss: none Specimens: other (A ascending polyp) Condition: stable Disposition: post procedure unit Results - Labs CBC & BMP: 11/24/16 04:59 11/23/16 05:32 Discharge Plan - Discharge Medications No Action Atorvastatin [Lipitor] 20 mg PO DAILY Furosemide Tab [Lasix Tab] 40 mg PO BID DIURETIC Losartan [Cozaar] 100 mg PO DAILY Aspirin 325 mg PO DAILY - Follow Up or Referral - Forms/Instructions
[2016-11-24 12:48] VITALS: BP 154/80
--- NOTE | 2016-11-24 12:58 | Discharge Summary ---
Hospital Course - Hospital Course Hospital Course: Mr. Mayers is a 86 year old male -[place] male with past medical history atrial fibrillation, pacemaker placement, hypertension, congestive heart failure , severe anemia requiring blood transfusion, and alcohol use who presented to the ED from outlying facility with chief complaint of lower GI bleed. The patient reported approximately 2 PM on the day of admission his stomach was "growling" and he went to the bathroom and he passed a large amount of bright red blood. He had 2 more bowel movements in which the blood became darker and darker. He denied nausea, vomiting, fatigue, or syncopal episodes. He was admitted to the hospitalist service for blood loss anemia secondary to GI bleed. He had a drop in his H/H the night of admission, requiring 2 unit PRBC transfusion. Gastroenterology was consulted. Colonoscopy today with diverticulosis, most likely cause of bleed. His H/H has been stable. He has now reached maximal benefit of inpatient stay and will be discharged to home. - Time spent with patient Time with patient DS: Less than 30 minutes (25) Diagnosis - Discharge Diagnosis (1) Lower gastrointestinal hemorrhage Status: Resolved (2) Atrial fibrillation Status: Chronic (3) CHF (congestive heart failure) Status: Chronic Discharge Plan - Discharge Data Disposition: Disch To Home/Self Care Condition at Discharge: Stable Discharge Diet: high fiber diet Activity: increase activity as tolerated Hygiene: no restrictions Weight Bearing at Discharge: weight bear as tolerated Contact your physician if you experience:: Shortness of breath, Bleeding - Discharge Medications Continue Atorvastatin [Lipitor] 20 mg PO DAILY Furosemide Tab [Lasix Tab] 40 mg PO BID DIURETIC Losartan [Cozaar] 100 mg PO DAILY Aspirin 325 mg PO DAILY - Follow Up or Referral - Forms/Instructions Exam - Constitutional Vitals: Period Temp Pulse Resp BP Sys/Barnes Pulse Ox Last 24 Hr 97.4 F-98.5 F 43-61 12-20 121-174/70-93 92-100 General appearance: normal weight - Head Head exam: Present: normocephalic, atraumatic - Eye Eye exam: Present: EOMI Pupils: Present: JADYN - ENT ENT exam: Present: normal exam - Neck Neck exam: Present: normal inspection - Respiratory Respiratory exam: Present: clear to auscultation bilaterally. Absent: rhonchi, wheezes - Cardiovascular Cardiovascular exam: Present: regular rate and rhythm - GI/Abdominal GI/Abdominal exam: Present: normal bowel sounds, soft. Absent: tenderness, rebound - Extremities Exam Extremities exam: Present: normal inspection - Back Exam Back exam: Present: normal inspection - Neurological Exam Neurological exam: Present: alert, oriented X3 - Psychiatric Psychiatric exam: Present: normal affect, normal mood - Skin Skin exam: Present: warm, intact Discharge Results Labs on day of discharge: Labs from last 24 hours 11/24/16 04:59 WBC 3.8 L RBC 3.18 L Hgb 9.3 L Hct 28.6 L MCV 89.9 MCH 29 MCHC 32.5 RDW 14.5 Plt Count 157 MPV 11.1 Neut % (Auto) 63.6 Lymph % (Auto) 21.3 [place] % (Auto) 11.1 Eos % (Auto) 3.2 Baso % (Auto) 0.5 Neut # (Auto) 2.4 Lymph # (Auto) 0.8 L [place] # (Auto) 0.4 Eos # (Auto) 0.1 Baso # (Auto) 0.0 Immature Gran % 0.3 Nucleated RBC % 0.0 Immature Gran # 0.01 Nucleated RBCs # 0.00 DS: Provider Date of admission: 11/21/16 01:15 Primary care physician: . No PCP Attending physician on admission: Baldev Frey MD Consults: 11/21/16 01:15 Consult to Physician [CONS] Routine Comment: Lower GI bleed Consulting Provider: Matt Rose Consult to Specialist Group: Gastroenterology When should Consulting Provider be notified: In am Person Notified: Dr. Ramos Date Notified: 11/21/16 Time Notified: 08:37 Discharging clinician: Britt Thompson MD
--- NOTE | 2016-11-24 13:00 | Anesthesia Post-Op ---
Anesthesia Post OP - Post Ansesthetic Evaluation Patient seen in post op: Yes Resp: within normal limits CV: within normal limits Mental: within normal limits Temp: within normal limits Glwl-[id number]-Gszmugkho: within normal limits Nausea and Vomiting: within normal limits Pain: within normal limits
[2016-11-24] MEDS: LOSARTAN 50 MG TABLET PO SCH (15:01)
[2016-11-24] MEDS: ATORVASTATIN 20 MG TABLET PO SCH (15:01)
[2016-11-24] MEDS: PANTOPRAZOLE 40 MG VIAL IV SCH (15:01)
--- NOTE | 2016-11-25 13:30 | Pathology Report from [facility] ---
[facility] ACCESSION # : [id number] PATIENT NAME : Tito Torrez ORDERING DR : JOSE LIEBERMAN MD CLINICAL HX: Lower GI Bleed POST-OP DX: Polypectomy SPECIMEN INFO: Ascending colon polyp GROSS DESCRIPTION: The specimen is received in formalin labeled with the patients name and consists of a 0.3 x 0.2 cm vargas tissue fragment. Submitted in one cassette. DIAGNOSIS FOR TITO TORREZ: ASCENDING COLON BIOPSY: Diminutive hyperplastic polyp. Benign lymphoid aggregate. COLLECTED DATE: 11/24/2016 [facility] REPORT DATE: 11/25/2016 ELECTRONICALLY SIGNED BY: Barrera Meadows M.D. 11/25/2016 - 10:24:20 MTDReuben
--- NOTE | 2016-12-01 10:51 | Physician Query Form ---
CLICK EDIT DOCUMENT TO SELECT QUERY ANSWER --> OK --> SIGN PROVIDERS: Make your selection(s) from the choices in EACH section by typing an "x" and enter comments in the comment section. Please use your independent medical judgment in providing your response. This request does not imply that any particular answer is desired or expected. CLINICAL INDICATORS: (Providers should not edit this section) "Patient reported approximately 2 PM on the day of admission his stomach was "growling" and he went to the bathroom and he passed a large amount of bright red blood. He had 2 more bowel movements in which the blood became darker and darker"---"He was admitted to the hospitalist service for blood loss anemia secondary to GI bleed. He had a drop in his H/H the night of admission, requiring 2 unit PRBC transfusion" Please clarify the acuity of the ---- "blood loss anemia" Clarify which of the following accurately represents the acuity of the above diagnosis. ( x) Acute ( ) Acute on chronic ( ) Chronic stable condition ( ) Remission ( ) Other, please specify: ( ) Clinically unable to determine COMMENTS: PLEASE ALSO DOCUMENT RESPONSE IN PROGRESS NOTES AND/OR DISCHARGE SUMMARY Use of terms such as suspected, likely, or probable (associated with a specific diagnosis that is being evaluated, monitored, or treated as if it exists) are acceptable and can be restated in the discharge summary if not ruled out. MTDD
== END 2016-11-24 15:30 | disposition home or self-care (01) | DRG 378 ==
LOC: EDUNIT# → EDBD → N.ED 23:46 → SUATTDRO 11-21 01:15 → N.EDINP 11-21 01:15 → N.2E 11-21 02:20
PROVIDERS: ADMIT Internal Medicine; ATTEND Internal Medicine

== ENCOUNTER 2017-02-05 10:02 | Inpatient (IN) ==
--- NOTE | 2017-02-05 11:03 | Emergency Department Note ---
Arrival - Arrival Chief Complaint: GI Bleed/Rectal Stated Complaint: blood, in stool ED Nursing Triage Note: C/O Having blood in stool this am., states he has had two stools and one of the stools was dark red and the other episode was bright red., denies having abd.pain ,. states he had this happen apx. 2 months ago and had a c-scope done 2 months ago and was told had a polyp Mode of Arrival: Ambulatory Limitations: No Limitations Source: Patient Time Seen by Provider: 02/05/17 10:30 - History of Present Illness HPI Narrative: Patient complains of 2 episodes of rectal bleeding this morning. The first, around 5:00, was bright red. The second, around 830, was a darker maroon color. Both were liquid and had no stool as far as he could tell. He denies any abdominal pain, nausea or vomiting. He has a history of the same symptoms in the past and was admitted here in November for the same. He had anemia and required transfusion. A scope was done which showed diverticulosis and this was thought to be the cause. Allergies/Adverse Reactions: Allergies Allergy/AdvReac Type Severity Reaction Status Date / Time No Known Allergies Allergy Verified 02/05/17 10:08 Home Medications: Home Medications Medication Instructions Recorded Confirmed Type Aspirin 325 mg PO DAILY 11/20/16 11/20/16 History Atorvastatin [Lipitor] 20 mg PO DAILY 11/20/16 11/20/16 History Furosemide Tab [Lasix Tab] 40 mg PO BID DIURETIC 11/20/16 11/20/16 History Losartan [Cozaar] 100 mg PO DAILY 11/20/16 11/20/16 History Review of System - Review of System 12 point system: reviewed and no additional remarkable complaints except as stated - Review of System Constitutional: Absent: fever Head/Ears/Nose/Throat: Absent: nasal drainage, sore throat Respiratory: Absent: cough Cardiovascular: Absent: chest pain Gastrointestinal: Present: hematochezia. Absent: abdominal pain, nausea, vomiting, diarrhea, constipation, hematemesis, melena Medical,Surgical,& Family Hx - Medical History Cardio: History of: Cardiac Dysrhythmia (A-fib), CHF, Pacemaker Neurology: No history of: Seizures HEENT: History of: Ear Problem (Hard of Hearing) Gastrointestinal: History of: Gastrointestinal Bleed Musculoskeletal: Comment Only: Musculoskeletal Problems ("joints get stiff") - Surgical History Abdominal Surgeries: Surgical HX of: Colonoscopy - Family History Family History: Reports;: Family Hypertension - Social History Smoking Status: Never smoker Frequency of Alcohol Use: Rarely Type of Drug Use: None Exam Physical Examination: GENERAL: Alert. No acute distress. HEENT: Normocephalic and atraumatic. There is no nasal drainage. No pharyngeal erythema or exudate. NECK: Normal inspection. Supple. No lymphadenopathy or meningismus. LUNGS: No respiratory distress. Clear to auscultation bilaterally, no wheezes, rales or rhonchi. HEART: Regular rate and rhythm. ABDOMEN: Soft, nontender and nondistended with normoactive bowel sounds. Rectal: Nontender. Enlarged prostate. No masses. Grossly positive dark red blood. BACK: Normal inspection. SKIN: Color normal. Warm and dry. EXTREMITIES: Nontender. Normal range of motion. No pedal edema. NEUROLOGICAL/PSYCHIATRIC: Alert and oriented -3 with normal mood and affect. Cranial nerves normal. No motor or sensory deficit. Vital Signs: Vital Signs Temperature 98.6 F 02/05/17 10:32 Pulse Rate 51 L 02/05/17 11:00 Respiratory Rate 12 02/05/17 11:00 Blood Pressure 139/71 02/05/17 11:00 O2 Sat by Pulse Oximetry 100 02/05/17 11:00 Course - Reevaluation(s) Reevaluation #1: H&H is okay at this point and the patient has had no further bleeding since arrival, however, given his previous episode and that he required transfusion, I think it best to admit him for observation at least. I discussed him with the hospitalist service who will see him and admit. Time: 12:34 Results - Labs CBC & BMP: 02/05/17 10:40 02/05/17 10:40 Lab Results: I have reviewed the patients labs Disposition Clinical Impression: GI bleeding Case discussed with: patient, patient's family Disposition: Still a Patient Condition: Stable Time of Disposition: 12:36
[2017-02-05 11:07] LABS: Basophils % 0.5 % (0.0-0.8); Eosinophils # 0.1 10*3/uL (0.0-0.87); Eosinophils % 2.3 % (0.00-10.9); Hematocrit 31.3 VOL% (42.0-52.0); Hemoglobin 10.2 GM/DL (14.0-18.0); Immature Granulocytes % 0.2 %; Immature Granulocytes Absolute 0.01 #; Lymphocytes % 22.8 % (21.2-54.2); Mean Corpuscular HGB Conc 32.6 GM/DL (32-36); Mean Corpuscular Hemoglobin 28 PG (27-34); Mean Corpuscular Volume 84.6 FL (87-102); Mean Platelet Volume 11.1 FL (9.6-12.0); Monocytes # 0.4 10*3/uL (0.11-0.8); Monocytes % 8.3 % (1.7-12.7); Neutrophils # 2.9 10*3/uL (1.4-7.4); Neutrophils % 65.9 % (38.7-73.9); Platelet Count 196 T/CUMM (130-400); Red Cell Distribution Width 15.3 % (9.3-17.3); White Blood Count 4.4 T/CUMM (4-12)
[2017-02-05 11:13] LABS: INR 1.2; PT Patient Result 12.3 SECS; Partial Thromboplastin Time 27.9 SECS (0-40)
[2017-02-05 11:17] LABS: Calcium 8.9 MG/DL (8.5-10.1); Osmolality,Calculated 281.3 MOS/KG (273-304); Potassium 3.3 MMOL/L (3.5-5.1)
[2017-02-05] MEDS ORDERED: MORPHINE 2 MG/1 ML SYRINGE IV PRN (12:42)
[2017-02-05] MEDS ORDERED: ONDANSETRON 4 MG/2 ML VIAL IV PRN (12:42)
--- NOTE | 2017-02-05 13:27 | Hospitalist History & Physical ---
Assessment and Plan - Time spent with patient Time spent with patient: Greater than 30 minutes (1) Hypertension Status: Acute Assessment and plan: 86-year-old -English male with history of hypertension, GI bleeding, and pacemaker placement admitted by the hospitalist service with lower GI bleed. Patient has had 2 bloody bowel movements since 5 AM. His H&H is stable and his vital signs are stable. He will be be admitted to a monitored bed on the floor with serial H&H's. Will monitor for further bleeding. Dr. Rose has seen the patient before and scoped him in November so we will consult him for further evaluation. Patient also has low potassium of 3.3 so we will replace this per protocol. Patient also has acute kidney injury with creatinine of 1.7. In November his creatinine was 1. Will go ahead and give him some IV fluids and will hold his Lasix for now. Dr. Terrell will see and examine patient and further recommendations to follow. Current Visit: Yes (2) Lower gastrointestinal hemorrhage Status: Resolved Current Visit: No (3) Melena Status: Acute Current Visit: No (4) Hematochezia Status: Acute Current Visit: No (5) Hypokalemia Status: Acute Current Visit: Yes (6) Acute kidney injury Status: Acute Current Visit: Yes History of Present Illness Chief complaint: Pooping blood History of present illness: Mr. Mayers is a 86 year old -English male with history of hypertension, hard of hearing and pacemaker placement for bradycardia presenting to the ED with bright red blood per rectum. Patient is accompanied by his son who assists in giving his history. Patient is limited by his hearing deficit. Patient states this morning at 5 AM he got up to use the bathroom and he had a lot of bright red blood. He states about 2 hours later he had another one that was a little darker in color. Patient states it was not formed and was more watery than anything. Patient denies blood in his urine, coughing up blood, abdominal pain, nausea, chest pain, shortness of breath or bruising easily. Patient was admitted in November with lower GI bleed. He was scoped by Dr. Rose on 11/24/2016 where he found a colon polyp and diverticulosis. He felt that the diverticulosis was the source of his painless hematochezia and this was self- limited at that time. The pathology on the polyp was benign. He was stable and discharged home with an H&H of 9.3/28.6. Today patient's H&H is 10.2/31.3 which is actually higher than it was in November. He has had no further bowel movements at this time. He is afebrile and his vital signs are stable. His coags are normal and his BMP is showing a potassium of 3.3 and a creatinine of 1.7. His hospital stay in November his creatinine was 1. Patient's manager of allied health services is Dr. Boyer and he does have a pacemaker that was placed for bradycardia. Heart monitor showing sinus rhythm with heart rate of 60. After discussion with Dr. Garay the ED physician and Dr. Terrell the admitting hospitalist, it was agreed patient will be admitted for further evaluation and treatment. Patient's medicines have been reconciled and he is a full code. Home Medications Medication Instructions Recorded Confirmed Type Aspirin 325 mg PO QAM 11/20/16 02/05/17 History Atorvastatin [Lipitor] 20 mg PO QAM 11/20/16 02/05/17 History Furosemide [Furosemide] 80 mg PO BEDTIME 02/05/17 02/05/17 History Losartan Potassium [Losartan 100 mg PO QAM 02/05/17 02/05/17 History Potassium] Allergies Allergy/AdvReac Type Severity Reaction Status Date / Time No Known Allergies Allergy Verified 02/05/17 10:08 Medical,Surgical,& Family Hx - Medical History Cardio: History of: Cardiac Dysrhythmia (A-fib), CHF, Pacemaker Neurology: No history of: Seizures HEENT: History of: Ear Problem (Hard of Hearing) Gastrointestinal: History of: Gastrointestinal Bleed Musculoskeletal: Comment Only: Musculoskeletal Problems ("joints get stiff") - Surgical History Abdominal Surgeries: Surgical HX of: Colonoscopy Orthopedic Surgeries: Patient denies;: Orthopedic Surgery - Family History Family History: Reports;: Family Hypertension - Social History Smoking Status: Never smoker Frequency of Alcohol Use: Rarely Type of Drug Use: None Marital Status: Single Lives With:: Children Functional capacity: independent ambulation 12 point system: reviewed and no additional remarkable complaints except as stated Exam - Constitutional Vitals: Period Temp Pulse Resp BP Sys/Barnes Pulse Ox Last 24 Hr 98.6 F-98.6 F 51-69 12-18 127-170/45-88 98-100 Exam: Constitutional System: No distress. No tremulousness. Head: Normocephalic, atraumatic. Ears, Nose and Throat System: No evidence of Otitis or Mastoiditis. No epistaxis or discharge Eyes System: Pupils equal, round, and reactive. Extraocular muscles intact. Neck: Supple, without adenopathy, No jugular venous distention. No thyromegaly, neck mass, or prior surgery apparent. Respiratory System: Chest clear to auscultation. Cardiovascular System: Heart with bradycardic rate and regular rhythm. No murmur. GI System: Abdomen soft, nontender. Normo active bowel sounds present. Musculoskeletal System: limbs with no pedal edema. Full distal pulses. Neurological System: No discernable sensory deficit. No aphasia Psychiatric System: Conversation is rational Results - Labs CBC & BMP: 02/05/17 10:40 02/05/17 10:40 Lab Results: I have reviewed the past 24 hour labs - EKG EKG results: sinus rhythm
[2017-02-05] MEDS ORDERED: SODIUM CHLORIDE 0.45% 1,000 ML IV SCH (13:30)
[2017-02-05] MEDS ORDERED: POTASSIUM CHLORIDE 20 MEQ TABLET PO PRN (13:37)
[2017-02-05] MEDS ORDERED: SODIUM CHLORIDE 0.45% 500 ML IV ONE (14:00)
[2017-02-05] MEDS ORDERED: FUROSEMIDE 80 MG TABLET PO SCH (16:00)
[2017-02-05] MEDS: SODIUM CHLORIDE 0.45% 1,000 ML IV SCH (16:07)
[2017-02-05 20:19] LABS: Hemoglobin 7.6 GM/DL (14.0-18.0)
[2017-02-05] MEDS: PANTOPRAZOLE 40 MG VIAL IV SCH (21:08)
[2017-02-06] MEDS: SODIUM CHLORIDE 0.45% 1,000 ML IV SCH ×4 (01:09→22:38)
[2017-02-06 06:02] LABS: Basophils % 0.6 % (0.0-0.8); Eosinophils # 0.1 10*3/uL (0.0-0.87); Eosinophils % 2.6 % (0.00-10.9); Hematocrit 23.3 VOL% (42.0-52.0); Hemoglobin 7.7 GM/DL (14.0-18.0); Immature Granulocytes % 0.3 %; Immature Granulocytes Absolute 0.01 #; Lymphocytes # 1.2 10*3/uL (1.4-4.0); Lymphocytes % 35.3 % (21.2-54.2); Mean Corpuscular Hemoglobin 28 PG (27-34); Mean Corpuscular Volume 84.1 FL (87-102); Mean Platelet Volume 10.7 FL (9.6-12.0); Monocytes # 0.4 10*3/uL (0.11-0.8); Monocytes % 11.7 % (1.7-12.7); Neutrophils # 1.7 10*3/uL (1.4-7.4); Neutrophils % 49.5 % (38.7-73.9); Platelet Count 149 T/CUMM (130-400); Red Blood Count 2.77 MC/CUMM (3.8-5.5); Red Cell Distribution Width 15.1 % (9.3-17.3); White Blood Count 3.4 T/CUMM (4-12)
[2017-02-06 06:29] LABS: Albumin 3.2 G/DL (3.4-5.0); Bilirubin,Total 1.2 MG/DL (0.2-1.0); Calcium 8.1 MG/DL (8.5-10.1); Magnesium 2.2 MG/DL (1.8-2.4); Osmolality,Calculated 280.3 MOS/KG (273-304); Potassium 3.7 MMOL/L (3.5-5.1); Total Protein 5.9 G/DL (6.4-8.3)
--- NOTE | 2017-02-06 08:28 | Hospitalist Progress Note ---
Assessment and Plan (1) Lower gastrointestinal hemorrhage Status: Resolved Assessment and plan: Impression: 1. Lower GI bleed, likely diverticular 2. Atrial fibrillation Plan: He has developed some acute blood loss anemia from the ongoing lower GI hemorrhage. I will transfuse a couple of units of red cells. GI has been consulted. We will await their opinion. He obviously does not need to be anticoagulated for his atrial fibrillation at this time. This note was completed using Coin voice recognition software. There may be subway operator errors as a result. Current Visit: No Hospitalist: Subjective Interval history: Follow-up lower GI bleed. The patient has had continued bleeding since admission. He says that he just came out of the bathroom, and had a bloody stool. All of these episodes have been painless. He had a diverticular bleed earlier this year, with colonoscopy at that time. He is currently standing at the bedside and denies any orthostatic symptoms Exam - Constitutional Vitals: Period Temp Pulse Resp BP Sys/Barnes Pulse Ox Last 24 Hr 97.1 F-98.6 F 51-69 12-20 106-170/45-88 95-100 Vital signs are noted above. Heart is irregular with a soft systolic murmur. Chest is clear with no rales or wheezes. Abdomen is soft and nontender. He is awake and alert. Results - Labs CBC & BMP: 02/06/17 05:45 02/06/17 05:45 Lab Results: I have reviewed the past 24 hour labs
[2017-02-06] MEDS ORDERED: SODIUM CHLORIDE 0.9% 250 ML IV PRN (08:29)
[2017-02-06] MEDS: ATORVASTATIN 20 MG TABLET PO SCH (08:55)
[2017-02-06] MEDS: PANTOPRAZOLE 40 MG VIAL IV SCH ×2 (08:55→20:42)
[2017-02-06] MEDS ORDERED: LOSARTAN 50 MG TABLET PO SCH (09:00)
--- NOTE | 2017-02-06 15:46 | Gastrointestinal Consult Note ---
Assessment and Plan - Time spent with patient Time spent with patient: Greater than 30 minutes (1) Hematochezia Status: Acute Current Visit: No (2) Other specified counseling Status: Acute Current Visit: No History of Present Illness History of present illness: Mr. Mayers is a 86 year old male Home Medications Medication Instructions Recorded Confirmed Type Aspirin 325 mg PO QAM 11/20/16 02/05/17 History Atorvastatin [Lipitor] 20 mg PO BEDTIME 11/20/16 02/05/17 History Furosemide [Furosemide] 80 mg PO BEDTIME 02/05/17 02/05/17 History Losartan Potassium [Losartan 100 mg PO QAM 02/05/17 02/05/17 History Potassium] Allergies Allergy/AdvReac Type Severity Reaction Status Date / Time No Known Allergies Allergy Verified 02/05/17 10:08 Medical,Surgical,& Family Hx - Medical History Cardio: History of: Cardiac Dysrhythmia (A-fib), CHF, Pacemaker Neurology: No history of: Seizures HEENT: History of: Ear Problem (Hard of Hearing) Gastrointestinal: History of: Gastrointestinal Bleed Musculoskeletal: Comment Only: Musculoskeletal Problems ("joints get stiff") - Surgical History Abdominal Surgeries: Surgical HX of: Colonoscopy Orthopedic Surgeries: Patient denies;: Orthopedic Surgery - Family History Family History: Reports;: Family Hypertension - Social History Smoking Status: Never smoker Frequency of Alcohol Use: Rarely Type of Drug Use: None Exam - Constitutional Vitals: Period Temp Pulse Resp BP Sys/Barnes Pulse Ox Last 24 Hr 97.1 F-98 F 56-60 16-20 106-156/55-72 92-100 Results - Labs CBC & BMP: 02/06/17 05:45 02/06/17 05:45 Note Addendum: PLEASE NOTE -- automatic citation of patient information is unavoidable in this electronic note. I have made a reasonable effort to review the information cited , but it is not a part of my evaluation, impression, or recommendation unless specifically discussed in the dictated text that follows. As well, voice recognition software was used in the creation of this clinical note. Reasonable effort was made to identify and correct gross errors. Despite proofreading, errors in dyslexia teacher may be present, including nonsense verbiage at times. If you encounter such an error, please contact me at for discussion and correction. -- Rachel Chief complaint: bright red blood per rectum History of present illness: This is a new patient, a 86-year-old male seen by consultation for evaluation of bright red blood per rectum. The patient is admitted to hospitalist service under the care of Dr. Arango with a primary diagnosis of lower gastrointestinal bleeding. The patient was admitted yesterday through the emergency department with primary complaint of same. Evaluation at that time revealed anemia with hemoglobin of 10.2 g/dL, minimal elevation in total bilirubin, and some evidence of acute kidney injury. The patient was admitted and has been treated with aggressive resuscitation as well as proton pump inhibitor therapy. He reports continued blood in his bowel movement and has required two units of packed red blood cells thus far. He has not had any abdominal pain or other discomfort. Patient denies fever, chills, night sweats, rigors, headache, dizziness, neck pain, visual changes, redness of the eyes, dysphagia, odynophagia, difficulty chewing, chest pain, shortness of breath, abdominal pain, weight loss, nausea, vomiting, regurgitation, hematemesis, proctalgia, constipation, dysuria, skin changes, temperature regulation issues, flushing, easy bleeding/bruising, musculoskeletal pain, mental status change, numbness/weakness in the extremities , yellowing of the eyes/skin, cutaneous eruptions, family history of gastrointestinal cancer and colon polyps, and other complaints in general. Review of systems: 12 point review of systems was negative except as documented above. Outpatient medications: losartan, Lasix, Lipitor, aspirin Inpatient medications: Lipitor, morphine, Zofran, Protonix, potassium chloride, sodium chloride infusion Past Medical History: atrial fibrillation, congestive heart failure, pacemaker, hearing loss, gastrointestinal bleeding from diverticulosis Social history: negative tobacco. Negative alcohol Family history: no gastrointestinal cancers Physical examination: Vital Signs: Current vital signs reviewed and documented above. General Appearance: lying in bed. Comfortable. No apparent distress. Difficulty hearing. Head: Normocephalic. Neck: Palpation of the neck revealed no abnormalities. Eyes: No scleral icterus. No scleral injection. No conjunctival pallor. Oral Cavity: Odor of breath was normal. No drooling was observed. Lips showed no abnormalities. Floor of the mouth showed no abnormalities. Pharynx: Oropharynx was normal. Lungs: Respiration rhythm and depth was normal. Cardiovascular: Heart rate and rhythm were normal. No murmurs were appreciated. Abdomen: abdomen was not distended. Abdominal palpation revealed no tenderness and no hepatosplenomegaly. Ascites was not discovered. Abdominal auscultation revealed positive bowel sounds. Musculoskeletal System: Musculoskeletal system was grossly normal. Neurological: level of consciousness was normal. Speech was normal. Skin: General appearance was normal. Color and pigmentation were normal. No skin lesions. Laboratory: white blood count 3.4, hemoglobin 7.7, hematocrit 23.3, platelets 149, MCV 84, INR 1.2, ALT 13, AST 16, total bilirubin 1.2, alkaline phosphatase 62 Radiology: reviewed Impressions: #1. Hematochezia -- the differential diagnosis includes diverticular bleeding, infectious/inflammatory enterocolitis, arteriovenous malformation, hemorrhoidal bleeding, colon polyps (including cancer), and upper gastrointestinal bleeding. I recommend serial hemoglobin and hematocrit monitoring with transfusion as indicated. I recommend aggressive crystalloid resuscitation as indicated. I recommend intravenous proton pump inhibitor. Patient will need colonoscopy with timing dependent on clinical progress. If bleeding continues, this will likely need to be done during this admission. If not, we could consider outpatient colonoscopy once patient is adequately resuscitated and transfused. #2. Other specified counseling -- The patient was seen for greater than 30 minutes. The patient was counseled for greater than 50% of this time regarding differential diagnosis, likely diagnosis, diagnostic and therapeutic alternatives, risks/benefits/alternatives of medications and procedures, and plan of care generally. The patient expressed understanding and wishes to proceed. Recommendations: -- aggressive crystalloid resuscitation -- transfusion as indicated -- serial hemoglobin and hematocrit monitoring -- colonoscopy with timing dependent on clinical progress -- thank you for consultation. We will continue to follow with you.
[2017-02-07 06:49] LABS: Basophils % 0.3 % (0.0-0.8); Eosinophils # 0.1 10*3/uL (0.0-0.87); Eosinophils % 3.3 % (0.00-10.9); Hematocrit 24.8 VOL% (42.0-52.0); Hemoglobin 8.3 GM/DL (14.0-18.0); Immature Granulocytes % 0.3 %; Immature Granulocytes Absolute 0.01 #; Lymphocytes % 28.8 % (21.2-54.2); Mean Corpuscular HGB Conc 33.5 GM/DL (32-36); Mean Corpuscular Hemoglobin 28 PG (27-34); Mean Corpuscular Volume 84.6 FL (87-102); Mean Platelet Volume 11.5 FL (9.6-12.0); Monocytes # 0.3 10*3/uL (0.11-0.8); Monocytes % 10.2 % (1.7-12.7); Neutrophils # 1.9 10*3/uL (1.4-7.4); Neutrophils % 57.1 % (38.7-73.9); Platelet Count 140 T/CUMM (130-400); Red Blood Count 2.93 MC/CUMM (3.8-5.5); White Blood Count 3.3 T/CUMM (4-12)
--- NOTE | 2017-02-07 07:14 | Gastrointestinal Progress Note ---
Assessment and Plan (1) Hematochezia Status: Acute Current Visit: No (2) Other specified counseling Status: Acute Current Visit: No Exam (Progress Note) - Constitutional Vitals: Period Temp Pulse Resp BP Sys/Barnes Pulse Ox Last 24 Hr 97.0 F-98.6 F 57-61 18-21 106-153/58-79 92-99 Results - Labs CBC & BMP: 02/07/17 05:13 02/06/17 05:45 Note Addendum: PLEASE NOTE -- automatic citation of patient information is unavoidable in this electronic note. I have made a reasonable effort to review the information cited , but it is not a part of my evaluation, impression, or recommendation unless specifically discussed in the dictated text that follows. As well, voice recognition software was used in the creation of this clinical note. Reasonable effort was made to identify and correct gross errors. Despite proofreading, errors in ballistics expert may be present, including nonsense verbiage at times. If you encounter such an error, please contact me at for discussion and correction. -- Rachel Chief complaint: bright red blood per rectum History of present illness: This is a follow-up patient, a 86-year-old male seen by consultation for evaluation of bright red blood per rectum. The patient received two units of packed red blood cells yesterday with appropriate response. He reports one bowel movement this morning with some blood but less than before. He is taking a clear liquid diet and tolerating this without difficulty. He continues without abdominal pain. Review of systems: 12 point review of systems was negative except as documented above. Inpatient medications: Lipitor, morphine, Zofran, Protonix, potassium chloride, sodium chloride infusion Physical examination: Vital Signs: Current vital signs reviewed and documented above. General Appearance: lying in bed. Comfortable. No apparent distress. Difficulty hearing. Head: Normocephalic. Neck: Palpation of the neck revealed no abnormalities. Eyes: No scleral icterus. No scleral injection. No conjunctival pallor. Oral Cavity: Odor of breath was normal. No drooling was observed. Lips showed no abnormalities. Floor of the mouth showed no abnormalities. Pharynx: Oropharynx was normal. Lungs: Respiration rhythm and depth was normal. Cardiovascular: Heart rate and rhythm were normal. No murmurs were appreciated. Abdomen: abdomen was not distended. Abdominal palpation revealed no tenderness and no hepatosplenomegaly. Ascites was not discovered. Abdominal auscultation revealed positive bowel sounds. Musculoskeletal System: Musculoskeletal system was grossly normal. Neurological: level of consciousness was normal. Speech was normal. Skin: General appearance was normal. Color and pigmentation were normal. No skin lesions. Laboratory: hemoglobin 8.3, platelets 140 Radiology: reviewed Impressions: #1. Hematochezia -- this is most likely diverticular bleeding and seems to be trending down. Blood counts have responded appropriately to transfusion. I recommend continued monitoring with further transfusion as indicated. We will continue to follow with you. #2. Other specified counseling -- The patient was seen for less than 30 minutes. The patient was counseled for greater than 50% of this time regarding differential diagnosis, likely diagnosis, diagnostic and therapeutic alternatives, risks/benefits/alternatives of medications and procedures, and plan of care generally. The patient expressed understanding and wishes to proceed. Recommendations: -- aggressive crystalloid resuscitation -- transfusion as indicated -- serial hemoglobin and hematocrit monitoring -- colonoscopy with timing dependent on clinical progress -- thank you for consultation. Dr. Rose will assume G.I. care for this patient tomorrow.
[2017-02-07] MEDS: SODIUM CHLORIDE 0.45% 1,000 ML IV SCH ×3 (07:38→23:44)
--- NOTE | 2017-02-07 08:29 | Hospitalist Progress Note ---
Assessment and Plan (1) Lower gastrointestinal hemorrhage Status: Resolved Assessment and plan: Impression: 1. Lower GI bleed, likely diverticular 2. Atrial fibrillation Plan: Continue to follow serial H/H, and transfuse as needed. Will not anticoagulate for atrial fibrillation at this time. This note was completed using [employer] voice recognition software. There may be kennel helper errors as a result. Current Visit: No Hospitalist: Subjective Interval history: Follow-up rectal bleeding. The patient reports that he continues to pass some blood in the stool. He remains without any abdominal pain. He thinks that the bleeding has diminished somewhat since yesterday. We gave him 2 units of blood, and his hemoglobin and hematocrit are currently 8 and 25. GI has seen the patient; we appreciate their recommendations. Exam - Constitutional Vitals: Period Temp Pulse Resp BP Sys/Barnes Pulse Ox Last 24 Hr 97.0 F-98.6 F 58-61 18-21 110-153/58-79 92-99 Vital signs are noted above. Heart is irregular with a 2/6 systolic ejection murmur. Chest is fairly clear. Abdomen is soft with positive bowel sounds. He is awake and alert. Results - Labs CBC & BMP: 02/07/17 05:13 02/06/17 05:45
[2017-02-07] MEDS: ATORVASTATIN 20 MG TABLET PO SCH (08:41)
[2017-02-07] MEDS: PANTOPRAZOLE 40 MG VIAL IV SCH ×2 (08:42→20:58)
[2017-02-07 12:22] LABS: Hematocrit 26.5 VOL% (42.0-52.0); Hemoglobin 8.7 GM/DL (14.0-18.0)
[2017-02-08] MEDS: SODIUM CHLORIDE 0.45% 1,000 ML IV SCH ×2 (08:19→09:54)
[2017-02-08] MEDS: PANTOPRAZOLE 40 MG VIAL IV SCH ×2 (09:15→20:38)
[2017-02-08] MEDS: ATORVASTATIN 20 MG TABLET PO SCH (09:15)
--- NOTE | 2017-02-08 11:52 | Gastrointestinal Progress Note ---
<Hao Hidalgoher Reuben - Last Filed: 02/08/17 11:49> Assessment and Plan (1) Lower gastrointestinal hemorrhage Status: Resolved Assessment and plan: 02/08-onset of bright red rectal bleeding without abdominal pain. Recent inpatient stay in November for similar presentation with colonoscope noted as below. Hemoglobin is holding at 8 at this time. Has been transfused 2 units packed red blood cells. Diet to be advanced today and continue to monitor. Plan an addendum to follow Dr. Rose. Current Visit: No Gastroenterology - PN: Subj Interval history: CC: Rectal bleeding Patient seen awake alert sitting up in chair eating lunch. He states he had an uneventful night. Patient states that he has had a very small amount of rectal bleeding this morning however states is significantly less remission. Patient was admitted back in November of this year with painless hematochezia and at that time he underwent colonoscopy with only findings of colon polyp (hyperplastic polyp) and diverticulosis which was suspected areas of his bleeding source at that time. Patient denies any abdominal pain associated with this bleeding as well as denies any nausea vomiting. His hemoglobin on admission was noted at 7.6 and he has been transfuse 2 units of packed red blood cells 2 days ago with hemoglobin holding at 8. Abdomen is soft, nontender. ROS: Denies shortness breath or chest pain Exam (Progress Note) - Constitutional Vitals: Period Temp Pulse Resp BP Sys/Barnes Pulse Ox Last 24 Hr 97.2 F-98.2 F 60-67 20-22 118-139/55-77 95-100 General appearance: normal weight, no acute distress - Head Head exam: Present: normal inspection, normocephalic - Eye Eye exam: Present: other (Lids and conjunctival are unremarkable). Absent: scleral icterus - ENT ENT exam: Present: normal exam, normal oropharynx - Neck Neck exam: Present: normal inspection - Respiratory Respiratory exam: Present: clear to auscultation bilaterally. Absent: rales, rhonchi, wheezes - Cardiovascular Cardiovascular exam: Present: regular rate and rhythm. Absent: diastolic murmur , JVD, systolic murmur - GI/Abdominal GI/Abdominal exam: Present: normal bowel sounds, soft. Absent: ascites, distended, mass, organomegaly, tenderness - Extremities Exam Extremities exam: Present: normal inspection, full ROM - Back Exam Back exam: Present: normal inspection - Neurological Exam Neurological exam: Present: alert, oriented X3 - Psychiatric Psychiatric exam: Present: normal affect, normal mood - Skin Skin exam: Present: normal color, warm, dry Results - Labs CBC & BMP: 02/08/17 10:02 02/06/17 05:45 Lab Results: I have reviewed the past 24 hour labs <Matt Rose - Last Filed: 02/08/17 20:40> Exam (Progress Note) - Constitutional Vitals: Period Temp Pulse Resp BP Sys/Barnes Pulse Ox Last 24 Hr 97.2 F-98.2 F 59-67 19-22 118-146/55-77 95-100 Results - Labs CBC & BMP: 02/08/17 10:02 02/06/17 05:45
--- NOTE | 2017-02-08 14:45 | Physician Query Form ---
CLICK EDIT DOCUMENT TO SELECT QUERY ANSWER --> OK --> SIGN Lee Ann Salazar RN, CCDS Certified Clinical [employer] Software Engineer W) [phone] (F) [phone] [email or web address] PROVIDERS: Make your selection(s) from the choices in EACH section by typing an "x" and enter comments in the comment section. Please use your independent medical judgment in providing your response. This request does not imply that any particular answer is desired or expected. CLINICAL INDICATORS: (Providers should not edit this section) Height: 75" Weight: 155# Chair Springer BMI: 19.4# Nutritional supplements: Lawyers notes: Other clinical notes: The medical record indicates that the patient was admitted with GI bleeding, BMI of 19.4#, Wt of 155 pounds, Height of 75", Per Dietary Notes: "12 lb weight loss noted over past 2-3 months: 7% of body weight (pt hospitalized in October, note pt had edema at that time that is not present this admission)"--- " add trial Breeze to trays". Based on the above, which following choice most accurately represents the patient's nutritional status? ( ) Malnutrition ( ) mild ( ) moderate ( ) severe ( ) Protein calorie malnutrition ( ) mild ( ) moderate ( ) severe ( ) Emaciation due to malnutrition ( ) Nutritional marasmus ( ) Cachexia (x ) Underweight ( ) No nutritional deficiency ( ) Other, please specify: ( ) Clinically unable to determine Mild Malnutrition (BMI < 18.5, % Normal Body Weight 85-95%) Moderate Malnutrition (BMI < 17, % Normal Body Weight 75-85%) Severe Malnutrition (BMI < 16, % Normal Body Weight < 75%) Source: Debbie COMMENTS: PLEASE ALSO DOCUMENT RESPONSE IN PROGRESS NOTES AND/OR DISCHARGE SUMMARY Use of terms such as suspected, likely, or probable (associated with a specific diagnosis that is being evaluated, monitored, or treated as if it exists) are acceptable and can be restated in the discharge summary if not ruled out. MTDD
--- NOTE | 2017-02-08 16:13 | Hospitalist Progress Note ---
Assessment and Plan (1) Lower gastrointestinal hemorrhage Status: Resolved Assessment and plan: Hemoglobin has stabilized with 2 units of packed red blood cells. He remained stable in a.m. we will discharge home. Hep-Lock IV fluids please Current Visit: No (2) Melena Status: Acute Assessment and plan: Resolved Current Visit: No (3) Atrial fibrillation Status: Chronic Assessment and plan: Rate controlled without intervention. Currently still in atrial fib. Current Visit: No (4) CHF (congestive heart failure) Status: Chronic Assessment and plan: 2 d echo Current Visit: No Qualifiers: Congestive heart failure type: unspecified congestive heart failure type Congestive heart failure chronicity: chronic Qualified Code(s): I50.9 - Heart failure, unspecified Hospitalist: Subjective Interval history: Patient is up and eating. He is extremely hard of hearing. GI has seen him today and does not plan to do another colonoscopy he was recently already had intervention and had diverticuli. Exam - Constitutional Vitals: Period Temp Pulse Resp BP Sys/Barnes Pulse Ox Last 24 Hr 97.2 F-98.2 F 59-67 19-22 118-146/55-77 95-100 Exam: Heart Rate-[IRR] Lungs-[CTAB] GI-[+bs soft, NT] Ext-[no edema] Neuro [Motor 5/5], [alert and oriented times 3] psych [normal mood and affect] General [no acute distress] Results - Labs CBC & BMP: 02/08/17 10:02 02/06/17 05:45 Lab Results: I have reviewed the past 24 hour labs
--- NOTE | 2017-02-09 10:28 | Discharge Summary ---
Hospital Course - Hospital Course Hospital Course: Mr. Mayers is a 86-year-old male with a history of hypertension , CHF, pacemaker placement, GI bleed, and hard of hearing the presented to the ED on 02/05 complaints of bright red blood per rectum. Patient reported that prior to arrival around 5:00 in the morning he had to use the bathroom and saw a lot of bright red blood. Patient states that 2 hours later he had another episode. Patient was scoped on 11/24/[address] Rose where a colon polyp and diverticulosis was discovered. The ED revealed patients h&h of 10.2/31.3. Pt. was admitted for further evaluation and treatment. GI was consulted to evaluate the patient. IVF fluids were administered. Patient received a transfusion of blood. Serial hgb and hematocrit levels were monitored. Recurrent episode was thought to be related to diverticular disease Discharge Plan - Discharge Medications No Action Atorvastatin [Lipitor] 20 mg PO BEDTIME Furosemide [Furosemide] 80 mg PO BEDTIME Aspirin 325 mg PO QAM Losartan Potassium [Losartan Potassium] 100 mg PO QAM - Follow Up or Referral - Forms/Instructions Exam - Constitutional Vitals: Period Temp Pulse Resp BP Sys/Barnes Pulse Ox Last 24 Hr 97.1 F-97.9 F 55-60 19-20 125-146/64-77 95-99 Discharge Results Procedures and tests throughout hospitalization: Pending Orders 02/09/17 05:24 Red Blood Cells Leuko Red Routine Type and Screen Routine 02/09/17 08:13 NM GI bleeding Routine Labs on day of discharge: Labs from last 24 hours 02/09/17 02/09/17 02/08/17 05:27 05:24 10:02 Hgb 7.0 L 8.0 L Blood Type A POSITIVE Antibody Screen Negative Crossmatch See Detail DS: Provider Date of admission: 02/05/17 12:37 Primary care physician: . No PCP Attending physician on admission: Shar Terrell MD Consults: 02/05/17 12:42 Consult to Physician [CONS] Routine Comment: lower GI bleed Consulting Provider: Matt Rose When should Consulting Provider be notified: Now Person Notified: WILLI Date Notified: 02/05/17 Time Notified: 14:52 Consult Notification Comment: Spoke with Dr. Ramos on 02/06/17 @0926 Discharging clinician: Marbella Vincent NP
--- NOTE | 2017-02-09 11:56 | Gastrointestinal Progress Note ---
<DebbieakbarSue Reuben - Last Filed: 02/09/17 11:52> Assessment and Plan (1) Lower gastrointestinal hemorrhage Status: Resolved Assessment and plan: 02/09-drop in hemoglobin is 7. No known reports of overt bleeding. GI bleeding scan report is pending at this time. Continue to monitor. To be transfused 2 units of packed red blood cells today. Plan an addendum to followed by Dr. Rose. 02/08-onset of bright red rectal bleeding without abdominal pain. Recent inpatient stay in November for similar presentation with colonoscope noted as below. Hemoglobin is holding at 8 at this time. Has been transfused 2 units packed red blood cells. Diet to be advanced today and continue to monitor. Plan an addendum to follow Dr. Rose. Current Visit: No Gastroenterology - PN: Subj Interval history: Cc: GI bleed Patient is seen, awake and alert eating lunch. He is just returned from GI bleeding scan which was ordered this morning and after a drop was noted in his hemoglobin down to 7. He does not report any increased overt bleeding however states he had a very small amount with his bowel movement this morning. Bleeding scan results are still pending at this time. He is denying abdominal pain, nausea or vomiting. Tolerating his diet well. Abdomen soft, nontender. ROS: Denies shortness breath or chest pain Exam (Progress Note) - Constitutional Vitals: Period Temp Pulse Resp BP Sys/Barnes Pulse Ox Last 24 Hr 97.1 F-97.9 F 55-60 19-20 125-146/64-77 95-99 General appearance: normal weight, no acute distress - Head Head exam: Present: normal inspection, normocephalic - Eye Eye exam: Present: other (Lids and conjunctive are unremarkable). Absent: scleral icterus - ENT ENT exam: Present: normal exam, normal oropharynx - Neck Neck exam: Present: normal inspection - Respiratory Respiratory exam: Present: clear to auscultation bilaterally. Absent: rales, rhonchi, wheezes - Cardiovascular Cardiovascular exam: Present: regular rate and rhythm. Absent: diastolic murmur , JVD, systolic murmur - GI/Abdominal GI/Abdominal exam: Present: normal bowel sounds, soft. Absent: ascites, distended, mass, organomegaly, tenderness - Extremities Exam Extremities exam: Present: normal inspection, full ROM - Back Exam Back exam: Present: normal inspection - Neurological Exam Neurological exam: Present: alert, oriented X3 - Psychiatric Psychiatric exam: Present: normal affect, normal mood - Skin Skin exam: Present: normal color, warm, dry Results - Labs CBC & BMP: 02/09/17 05:27 02/06/17 05:45 Lab Results: I have reviewed the past 24 hour labs <Matt Rose - Last Filed: 02/09/17 20:32> Exam (Progress Note) - Constitutional Vitals: Period Temp Pulse Resp BP Sys/Barnes Pulse Ox Last 24 Hr 97.1 F-98.6 F 53-60 18-20 128-145/66-75 95-99 Results - Labs CBC & BMP: 02/09/17 05:27 02/06/17 05:45
--- NOTE | 2017-02-09 12:08 | Nuclear Medicine Report ---
History: Decreased hemoglobin Date: 02/09/2017 Study: Nuclear medicine GI bleeding scan Comparison exam: No previous similar Nuclear medicine tagged red blood cell GI bleeding study was performed. Flow images were initially obtained, followed by 60 minutes of dynamic imaging. There is physiologic uptake by the vascular system and the upper abdominal organs. There is progressive activity noted within the bladder. No active GI bleeding occurred during the course of the exam Impression: Normal study. No evidence of active GI bleeding during the exam PROCEDURE INTERPRETED AT [facility] DEPARTMENT OF RADIOLOGY Final Report Signed by: Dr. Bernie Pisano
[2017-02-09] MEDS: PANTOPRAZOLE 40 MG VIAL IV SCH ×2 (14:24→21:45)
[2017-02-09] MEDS: ATORVASTATIN 20 MG TABLET PO SCH (14:24)
--- NOTE | 2017-02-09 15:58 | Hospitalist Progress Note ---
Assessment and Plan (1) Lower gastrointestinal hemorrhage Status: Resolved Assessment and plan: Transfuse 2 units packed red blood cells, cont protonix IV, bleeding scan negative Current Visit: No (2) Melena Status: Acute Assessment and plan: Resolved Current Visit: No (3) Atrial fibrillation Status: Chronic Assessment and plan: Rate controlled without intervention. Currently still in atrial fib. Current Visit: No (4) CHF (congestive heart failure) Status: Chronic Assessment and plan: 2 d echo completing reading pending Current Visit: No Qualifiers: Congestive heart failure type: unspecified congestive heart failure type Congestive heart failure chronicity: chronic Qualified Code(s): I50.9 - Heart failure, unspecified Hospitalist: Subjective Interval history: Patient's hemoglobin dropped to 7 today. He did report 1 bowel movement with some dark melena and slight red blood. We will give him 2 units packed cells. Bleeding scan is negative. Continue to monitor only. No intervention planned at this time. Exam - Constitutional Vitals: Period Temp Pulse Resp BP Sys/Barnes Pulse Ox Last 24 Hr 97.1 F-98.1 F 55-60 19-20 125-145/64-70 95-99 Exam: Heart Rate-[IRR] Lungs-[CTAB] GI-[+bs soft, NT] Ext-[no edema] Neuro [Motor 5/5], [alert and oriented times 3] psych [normal mood and affect] General [no acute distress] Results - Labs CBC & BMP: 02/09/17 05:27 02/06/17 05:45 Lab Results: I have reviewed the past 24 hour labs
--- NOTE | 2017-02-09 23:17 | Order Completion Report ---
See report scanned to EMR
[2017-02-10] MEDS: PANTOPRAZOLE 40 MG VIAL IV SCH (09:14)
[2017-02-10] MEDS: ATORVASTATIN 20 MG TABLET PO SCH (09:14)
--- NOTE | 2017-02-10 10:25 | Gastrointestinal Progress Note ---
<Sue Hidalgo - Last Filed: 02/10/17 10:22> Assessment and Plan (1) Lower gastrointestinal hemorrhage Status: Resolved Assessment and plan: 02/10-hemoglobin stable 8.6 with repeat lab pending. No complaints of abdominal pain. For tentative discharge home today. Plan an addendum to followed by Dr. Rose per 02/09-drop in hemoglobin is 7. No known reports of overt bleeding. GI bleeding scan report is pending at this time. Continue to monitor. To be transfused 2 units of packed red blood cells today. Plan an addendum to followed by Dr. Rose. 02/08-onset of bright red rectal bleeding without abdominal pain. Recent inpatient stay in November for similar presentation with colonoscope noted as below. Hemoglobin is holding at 8 at this time. Has been transfused 2 units packed red blood cells. Diet to be advanced today and continue to monitor. Plan an addendum to follow Dr. Rose. Gastroenterology - PN: Subj Interval history: CC: Lower GI bleed Patient seen awake and alert sitting up in chair. States he had an uneventful night. He had a GI bleeding scan on yesterday which was negative. He was transfused 2 units. Blood cells and his hemoglobin is now stable at 8.6 however he did have one very small episode of dark red blood noted in stool this morning. He states it was "not even enough to cover the commode water". He is tolerating his diet well without any complaints of abdominal pain, nausea or vomiting. He states that he feels he is ready for discharge home today. Discussed case with Dr. Thompson and she is going to recheck his hemoglobin after his report of bleeding this morning and if stable will consider discharge home today. Abdomen soft, nontender. ROS: Denies shortness of breath or chest pain Exam (Progress Note) - Constitutional Vitals: Period Temp Pulse Resp BP Sys/Barnes Pulse Ox Last 24 Hr 97.0 F-98.6 F 48-75 18-22 126-179/54-87 94-99 General appearance: normal weight, no acute distress - Head Head exam: Present: normal inspection, normocephalic - Eye Eye exam: Present: other. Absent: scleral icterus - ENT ENT exam: Present: normal exam, normal oropharynx - Neck Neck exam: Present: normal inspection - Respiratory Respiratory exam: Present: clear to auscultation bilaterally. Absent: rales, rhonchi, wheezes - Cardiovascular Cardiovascular exam: Present: regular rate and rhythm. Absent: diastolic murmur , JVD, systolic murmur - GI/Abdominal GI/Abdominal exam: Present: normal bowel sounds, soft. Absent: ascites, distended, mass, organomegaly, tenderness - Extremities Exam Extremities exam: Present: normal inspection, full ROM - Back Exam Back exam: Present: normal inspection - Neurological Exam Neurological exam: Present: alert, oriented X3 - Psychiatric Psychiatric exam: Present: normal affect, normal mood - Skin Skin exam: Present: normal color, warm, dry Results - Labs CBC & BMP: 02/10/17 04:34 02/06/17 05:45 Lab Results: I have reviewed the past 24 hour labs <Matt Rose - Last Filed: 02/10/17 21:05> Exam (Progress Note) - Constitutional Vitals: Period Temp Pulse Resp BP Sys/Barnes Pulse Ox Last 24 Hr 97.0 F-98.3 F 48-75 18-22 134-179/54-87 95-98 Results - Labs CBC & BMP: 02/10/17 10:05 02/06/17 05:45
[2017-02-10 11:03] LABS: Hematocrit 26.9 VOL% (42.0-52.0); Hemoglobin 9.1 GM/DL (14.0-18.0)
[2017-02-10 11:47] VITALS: BP 178/74
--- NOTE | 2017-02-10 12:37 | Discharge Summary ---
Hospital Course - Hospital Course Hospital Course: Mr. Mayers is a 86-year-old male with a history of hypertension , CHF, pacemaker placement, GI bleed, and hard of hearing the presented to the ED on 02/05 complaints of bright red blood per rectum. Patient reported that prior to arrival around 5:00 in the morning he had to use the bathroom and saw a lot of bright red blood. Patient states that 2 hours later he had another episode. Patient was scoped on 11/24/[address] Rose where a colon polyp and diverticulosis was discovered. The ED revealed patients h&h of 10.2/31.3. Pt. was admitted for further evaluation and treatment. GI was consulted to evaluate the patient. IVF fluids were administered. Patient received a transfusion of blood. Serial hgb and hematocrit levels were monitored. Recurrent episode was thought to be related to diverticular disease. GI bleeding scan was negative. Hemoglobin has remained stable. He has now reached maximal benefit of inpatient stay and will be discharged to home. - Time spent with patient Time with patient DS: Less than 30 minutes Diagnosis - Discharge Diagnosis (1) GI bleeding Status: Resolved (2) Melena Status: Resolved (3) Atrial fibrillation Status: Chronic (4) CHF (congestive heart failure) Status: Chronic Discharge Plan - Discharge Data Disposition: Disch To Home/Self Care Condition at Discharge: Stable Discharge Diet: low salt diet Activity: ambulate only with your walker Hygiene: no restrictions Weight Bearing at Discharge: weight bear as tolerated Driving: no restrictions Contact your physician if you experience:: Shortness of breath - Discharge Medications Continue Atorvastatin [Lipitor] 20 mg PO BEDTIME Aspirin 325 mg PO QAM Losartan Potassium 100 mg PO QAM Discontinued Furosemide [Furosemide] 80 mg PO BEDTIME - Follow Up or Referral - Forms/Instructions Exam - Constitutional Vitals: Period Temp Pulse Resp BP Sys/Barnes Pulse Ox Last 24 Hr 97.0 F-98.6 F 48-75 18-22 126-179/54-87 94-98 General appearance: normal weight - Head Head exam: Present: normocephalic, atraumatic - Eye Eye exam: Present: EOMI Pupils: Present: JADYN - ENT ENT exam: Present: normal exam - Neck Neck exam: Present: normal inspection - Respiratory Respiratory exam: Present: clear to auscultation bilaterally - Cardiovascular Cardiovascular exam: Present: regular rate and rhythm - GI/Abdominal GI/Abdominal exam: Present: normal bowel sounds, soft. Absent: tenderness, rebound - Extremities Exam Extremities exam: Present: normal inspection - Back Exam Back exam: Present: normal inspection - Neurological Exam Neurological exam: Present: alert, oriented X3 - Psychiatric Psychiatric exam: Present: normal affect, normal mood - Skin Skin exam: Present: warm Discharge Results Labs on day of discharge: Labs from last 24 hours 02/10/17 02/10/17 02/09/17 10:05 04:34 05:24 Hgb 9.1 L 8.6 L D Hct 26.9 L Blood Type A POSITIVE Antibody Screen Negative Crossmatch See Detail DS: Provider Date of admission: 02/05/17 12:37 Primary care physician: . No PCP Attending physician on admission: Shar Terrell MD Consults: 02/05/17 12:42 Consult to Physician [CONS] Routine Comment: lower GI bleed Consulting Provider: Matt Rose When should Consulting Provider be notified: Now Person Notified: WILLI Date Notified: 02/05/17 Time Notified: 14:52 Consult Notification Comment: Spoke with Dr. Ramos on 02/06/17 @0926 Discharging clinician: Britt Thompson MD
== END 2017-02-10 14:04 | disposition home or self-care (01) | DRG 378 ==
LOC: N.ED 10:02 → N.EDINP 12:37 → SUATTDRO 12:37 → N.2E 14:00
PROVIDERS: ADMIT Hospitalist; ATTEND Internal Medicine

== ENCOUNTER 2017-02-12 09:12 | Inpatient (IN) ==
[2017-02-12] MEDS ORDERED: PANTOPRAZOLE 40 MG VIAL IV STA (09:36)
[2017-02-12] MEDS ORDERED: SODIUM CHLORIDE 0.9% 1,000 ML IV STA (09:36)
[2017-02-12] MEDS ORDERED: PANTOPRAZOLE 40 MG VIAL IV ONE (09:54)
[2017-02-12 09:55] LABS: Basophils % 0.4 % (0.0-0.8); Eosinophils # 0.1 10*3/uL (0.0-0.87); Eosinophils % 2.7 % (0.00-10.9); Hematocrit 22.7 VOL% (42.0-52.0); Hemoglobin 7.5 GM/DL (14.0-18.0); Immature Granulocytes % 0.6 %; Immature Granulocytes Absolute 0.03 #; Lymphocytes # 0.8 10*3/uL (1.4-4.0); Lymphocytes % 14.6 % (21.2-54.2); Mean Corpuscular Hemoglobin 29 PG (27-34); Mean Platelet Volume 10.5 FL (9.6-12.0); Monocytes # 0.3 10*3/uL (0.11-0.8); Monocytes % 5.9 % (1.7-12.7); Neutrophils % 75.8 % (38.7-73.9); Platelet Count 159 T/CUMM (130-400); Red Blood Count 2.58 MC/CUMM (3.8-5.5); Red Cell Distribution Width 16.1 % (9.3-17.3); White Blood Count 5.3 T/CUMM (4-12)
--- NOTE | 2017-02-12 09:58 | Order Completion Report ---
See report scanned to EMR
[2017-02-12 10:05] LABS: INR 1.2; PT Patient Result 12.6 SECS; Partial Thromboplastin Time 24.8 SECS (0-40)
--- NOTE | 2017-02-12 10:13 | Emergency Department Note ---
Frank Juarez Brittany, am scribing for, and in the presence of, Len Leon MD 09:37. Edward Juarez Doug C, MD, personally performed the services described in this documentation, ascribed by Jessica Marie in my presence, and it is both accurate and complete . Arrival - Arrival Chief Complaint: GI Bleed/Rectal Stated Complaint: blood in stool ED Nursing Triage Note: C/o dark, red blood in stool this morning. Patient was d /c from here two days ago for same c/o. Mode of Arrival: Ambulatory Limitations: No Limitations Source: Patient, RN Notes Reviewed - History of Present Illness HPI Narrative: Patient is a 6-year-old black male presents emergency room complaining rectal bleeding. Patient states started 10:00 last night when he had for dark bloody stools and had another one this morning. Patient states he felt little weak and dizzy with these episodes. He has had previous history of this in fact was just recently hospitalized with the same problem as well as in November of this year. He has diverticular bleeding. He denies any fever, chills or any abdominal pain associated with this. He denies any chest pain or palpitations. He does not have any dyspepsia or dysphagia. Onset (ago): hour(s) Consistency: constant Allergies/Adverse Reactions: Allergies Allergy/AdvReac Type Severity Reaction Status Date / Time No Known Allergies Allergy Verified 02/05/17 10:08 Home Medications: Home Medications Medication Instructions Recorded Confirmed Type Aspirin 325 mg PO QAM 11/20/16 02/05/17 History Atorvastatin [Lipitor] 20 mg PO BEDTIME 11/20/16 02/05/17 History Losartan Potassium 100 mg PO QAM 02/05/17 02/05/17 History Review of System - Review of System 12 point system: reviewed and no additional remarkable complaints except as stated - Review of System Constitutional: Present: weakness. Absent: chills, fever Eyes: Absent: vision change Head/Ears/Nose/Throat: Absent: nasal drainage, sore throat Respiratory: Present: respiratory distress Cardiovascular: Absent: chest pain Gastrointestinal: Present: other (dark red blood in stool). Absent: abdominal pain, nausea, vomiting, diarrhea, constipation Genitourinary male: Absent: urgency, dysuria, frequency Musculoskeletal: Absent: arm pain, back pain, leg pain, neck pain Skin: Absent: rash Neurological: Present: vertigo. Absent: headache Psychiatric: Absent: anxiety, depression Hematological/Lymphatic: Absent: easy bleeding, easy bruising Medical,Surgical,& Family Hx - Medical History Cardio: History of: Cardiac Dysrhythmia (A-fib), CHF, Pacemaker Neurology: No history of: Seizures HEENT: History of: Ear Problem (Hard of Hearing) Gastrointestinal: History of: Gastrointestinal Bleed Musculoskeletal: Comment Only: Musculoskeletal Problems ("joints get stiff") - Surgical History Abdominal Surgeries: Surgical HX of: Colonoscopy Orthopedic Surgeries: Patient denies;: Orthopedic Surgery - Family History Family History: Reports;: Family Hypertension - Social History Smoking Status: Never smoker Frequency of Alcohol Use: None Type of Drug Use: None Exam Vital Signs: Vital Signs Temperature 98.3 F 02/12/17 09:50 Pulse Rate 88 02/12/17 09:50 Respiratory Rate 16 02/12/17 09:50 Blood Pressure 107/57 02/12/17 09:50 O2 Sat by Pulse Oximetry 100 02/12/17 10:00 - General General appearance: alert, in no apparent distress - Head Head exam: Present: normocephalic - Eye Eye exam: Present: PERRL, EOMI, other (Arcus senilis both eyes) - ENT ENT exam: Present: normal exam, normal oropharynx - Neck Neck exam: Present: normal inspection, full ROM - Chest Chest inspection: Present: normal inspection - Respiratory Respiratory exam: Present: normal lung sounds bilaterally. Absent: rales, respiratory distress - Cardiovascular Cardiovascular exam: Present: regular rate, normal rhythm, normal heart sounds - Abdominal Exam Abdominal exam: Present: soft, normal bowel sounds. Absent: tenderness, guarding, rebound - Extremities Exam Extremities exam: Present: normal inspection - Back Exam Back exam: Present: normal inspection, full ROM - Neurological Exam Neurological exam: Present: alert, oriented X3, CN II-XII intact. Absent: motor sensory deficit - Psychiatric Psychiatric exam: Present: normal affect - Skin Skin exam: Present: warm, dry Course Course Narrative: I discussed the patient's clinical presentation and laboratory findings with Cefreino who is covering the hospitalist service. Patient was seen in emergency room and evaluated for admission Results - Labs CBC & BMP: 02/12/17 09:48 Lab Results: I have reviewed the patients labs Labs: Laboratory Tests 02/12/17 02/12/17 09:48 09:48 WBC 5.3 RBC 2.58 L Hgb 7.5 L Hct 22.7 L Plt Count 159 Neut % (Auto) 75.8 H Lymph % (Auto) 14.6 L Lymph # (Auto) 0.8 L INR 1.2 PT Patient/Control Mix 12.6 Circ Anticoag PTT 24.8 Disposition Clinical Impression: GI hemorrhage Case discussed with: patient, patient's family Disposition: Still a Patient Condition: Guarded Time of Disposition: 10:13
--- NOTE | 2017-02-12 10:15 | XRay Report ---
Portable chest Date: 02/12/2017 Clinical history: Shortness of breath Comparison: 07/31/2014 Technique: Portable AP sitting chest Findings: The heart is larger in size with stable left subclavian atrioventricular permanent pacemaker. Resolved pleural effusions with minimal atelectasis/edema at the right lung base. Stable mediastinum with degenerative changes. Impression: Progressive cardiomegaly with left subclavian atrioventricular permanent pacemaker.. Minimal atelectasis/edema at the right lung base. PROCEDURE INTERPRETED AT [facility] DEPARTMENT OF RADIOLOGY Final Report Signed by: Dr. Sandra Hummel
[2017-02-12 10:21] LABS: Albumin 3.3 G/DL (3.4-5.0); Bilirubin,Total 1.5 MG/DL (0.2-1.0); Calcium 8.2 MG/DL (8.5-10.1); Potassium 3.3 MMOL/L (3.5-5.1); Total Protein 6.2 G/DL (6.4-8.3)
--- NOTE | 2017-02-12 10:37 | Gastrointestinal Consult Note ---
<RockySue Reuben - Last Filed: 02/12/17 10:33> Assessment and Plan (1) GI bleeding Status: Resolved Assessment and plan: 02/12-onset of bright red rectal bleeding followed by dark red blood in stool last night. No complaints of abdominal pain or other associated symptoms. Findings of anemia on admission. Recent discharge noted 2 days ago with inpatient stay for GI bleeding and transfusions. History of diverticular disease. Monitor serial H&H and transfuse as necessary. If GI bleeding recurs , obtain stat GI bleeding scan. May have clear liquid diet at this time. Plan an addendum to followed by Dr. Rose. Current Visit: No History of Present Illness Chief complaint: Rectal bleed History of present illness: Mr. Mayers is a 86 year old male who was admitted to the hospital today with onset of rectal bleeding last night. Patient has a prior history of hypertension, CHF, atrial fibrillation, pacemaker placement. Patient was discharged from our facility 2 days ago after inpatient stay for a GI bleed. Patient states after discharge, he was doing fairly well however he did have one father dark red bloody stool that night. He states that he had a normal bowel movement the next day however last night at 10 PM he had a moderate amount of bright red blood with stool. He states he had another episode around midnight of dark blood and has had no further rectal bleeding since this time. He denies any abdominal pain, nausea or vomiting. He denies any fever or chills. He has a prior history of diverticulosis and was felt this last episode to be a diverticular bleed. His last colonoscopy was in November of this year with polyp removal (hyperplastic polyp) as well as findings of diverticulosis. He was transfused during his last admission a total of 4 units of packed red blood cells. His discharge H&H was noted to be 02/09. He did have a GI bleeding scan done during that stay which was found to be negative. Patient was found to have H&H of 7.5/22.7 on admission today. His last episode of bleeding was approximately 10 hours ago. Home Medications Medication Instructions Recorded Confirmed Type Aspirin 325 mg PO QAM 11/20/16 02/12/17 History Atorvastatin [Lipitor] 20 mg PO BEDTIME 11/20/16 02/12/17 History Losartan Potassium 100 mg PO QAM 09/22/17 09/29/17 History Furosemide [Furosemide] 80 mg PO QAM PRN 02/12/17 02/12/17 History Allergies Allergy/AdvReac Type Severity Reaction Status Date / Time No Known Allergies Allergy Verified 02/05/17 10:08 Medical,Surgical,& Family Hx - Medical History Cardio: History of: Cardiac Dysrhythmia (A-fib), CHF, Pacemaker Neurology: No history of: Seizures HEENT: History of: Ear Problem (Hard of Hearing) Gastrointestinal: History of: Gastrointestinal Bleed Musculoskeletal: Comment Only: Musculoskeletal Problems ("joints get stiff") - Surgical History Abdominal Surgeries: Surgical HX of: Colonoscopy Orthopedic Surgeries: Patient denies;: Orthopedic Surgery - Family History Family History: Reports;: Family Hypertension - Social History Smoking Status: Never smoker Frequency of Alcohol Use: None Type of Drug Use: None 12 point system: reviewed and no additional remarkable complaints except as stated - Constitutional Constitutional: Present: as per HPI - EENT Eyes: Present: as per HPI Ears: Present: as per HPI Nose, mouth and throat: Present: as per HPI - Cardiovascular Cardiovascular: Present: as per HPI - Respiratory Respiratory: Present: as per HPI - Gastrointestinal Gastrointestinal: Present: as per HPI, abdominal pain, hematochezia - Genitourinary Genitourinary: Present: as per HPI - Musculoskeletal Musculoskeletal: Present: as per HPI - Neurological Neurological: Present: as per HPI - Psychiatric Psychiatric: Present: as per HPI - Endocrine Endocrine: Present: as per HPI - Hematologic/Lymphatic Hematologic/Lymphatic: Present: as per HPI Exam - Constitutional Vitals: Period Temp Pulse Resp BP Sys/Barnes Pulse Ox Last 24 Hr 98.3 F-98.3 F 61-88 16-20 107-134/55-63 100-100 General appearance: normal weight, no acute distress - Head Head exam: Present: normal inspection, normocephalic - Eye Eye exam: Present: other (Lids and conjunctivae are unremarkable). Absent: scleral icterus - ENT ENT exam: Present: normal exam, normal oropharynx - Neck Neck exam: Present: normal inspection - Respiratory Respiratory exam: Present: clear to auscultation bilaterally. Absent: rales, rhonchi, wheezes - Cardiovascular Cardiovascular exam: Present: regular rate and rhythm. Absent: diastolic murmur , JVD, systolic murmur - GI/Abdominal GI/Abdominal exam: Present: normal bowel sounds, soft. Absent: ascites, distended, mass, organomegaly, tenderness - Extremities Exam Extremities exam: Present: normal inspection, full ROM - Back Exam Back exam: Present: normal inspection - Neurological Exam Neurological exam: Present: alert, oriented X3 - Psychiatric Psychiatric exam: Present: normal affect, normal mood - Skin Skin exam: Present: normal color, warm, dry Results - Labs CBC & BMP: 02/12/17 09:48 02/12/17 09:48 Lab Results: I have reviewed the past 24 hour labs <Matt Rose - Last Filed: 02/12/17 13:17> History of Present Illness Chief complaint: 3030 History of present illness: Mr. Mayers is a 86 year old male Exam - Constitutional Vitals: Period Temp Pulse Resp BP Sys/Barnes Pulse Ox Last 24 Hr 96.3 F-98.3 F 59-88 16-20 107-159/55-80 96-100 Results - Labs CBC & BMP: 02/12/17 09:48 02/12/17 09:48
--- NOTE | 2017-02-12 11:44 | Hospitalist History & Physical ---
<Marbella Vincent - Last Filed: 02/12/17 11:45> Assessment and Plan (1) GI hemorrhage Status: Acute Assessment and plan: Admit to monitored bed. IVF @ 75ml/hr. Clear liquid diet. Consult GI. PPI. Check serial h&hs. Current Visit: Yes (2) Hypokalemia Status: Acute Assessment and plan: Replace and recheck. Current Visit: No (3) Atrial fibrillation Status: Chronic Current Visit: No (4) CHF (congestive heart failure) Status: Chronic Current Visit: No Qualifiers: Congestive heart failure type: unspecified congestive heart failure type Congestive heart failure chronicity: chronic Qualified Code(s): I50.9 - Heart failure, unspecified History of Present Illness Chief complaint: gi bleed History of present illness: Mr. Mayers is a 86 year old black male with a history of hypertension, afib, chf , pacemaker, diverticulosis and gi bleed presents to the ED today for further evaluation of rectal bleeding with onset of last night. Mr. Mayers is known to our service as he was recently discharged on 2 days ago (02/09)after inpatient stay for GI bleed where he received multiple units of PRBCs. Patient states that after discharge, he "felt good". He states that he returned home and did not have any complaints. The first bowel movement that he had, he noted a small amount of blood but had been told that was to be expected. He reports that last night around 10 he went to the bathroom and there was a large amount of blood in his stool. He stated it was bright red. Later, around midnight, he returned to the bathroom and there was a very large amount of blood and it was very dark. Patient reports he is only slightly short of breath. He denies any abdominal pain, nausea, or vomiting. Pt's last colonoscopy was performed in November and he was noted to have diverticulosis. On arrival to the ED today, pt's h &h was 7.5/22.7. On discharge it was 9.1/26.9. Pt's case has been discussed with ER physician and hospitalist Dr. Thompson. Pt. will be admitted to the service for further evaluation and treatment. GI will consulted to see. Pt's home meds have been reviewed and reconciled. Home Medications Medication Instructions Recorded Confirmed Type Aspirin 325 mg PO QAM 11/20/16 02/12/17 History Atorvastatin [Lipitor] 20 mg PO BEDTIME 11/20/16 02/12/17 History Losartan Potassium 100 mg PO QAM 02/05/17 02/12/17 History Furosemide [Furosemide] 80 mg PO QAM PRN 02/12/17 02/12/17 History Allergies Allergy/AdvReac Type Severity Reaction Status Date / Time No Known Allergies Allergy Verified 02/05/17 10:08 Medical,Surgical,& Family Hx - Medical History Cardio: History of: Cardiac Dysrhythmia (A-fib), CHF, Pacemaker Neurology: No history of: Seizures HEENT: History of: Ear Problem (Hard of Hearing) Gastrointestinal: History of: Gastrointestinal Bleed Musculoskeletal: Comment Only: Musculoskeletal Problems ("joints get stiff") - Surgical History Abdominal Surgeries: Surgical HX of: Colonoscopy Orthopedic Surgeries: Patient denies;: Orthopedic Surgery - Family History Family History: Reports;: Family Hypertension - Social History Smoking Status: Never smoker Frequency of Alcohol Use: None Type of Drug Use: None Marital Status: Single Lives With:: Children Functional capacity: independent ambulation 12 point system: reviewed and no additional remarkable complaints except as stated - Respiratory Respiratory: Present: dyspnea (mild) - Gastrointestinal Gastrointestinal: Present: hematochezia. Absent: abdominal pain, nausea, vomiting Exam - Constitutional Vitals: Period Temp Pulse Resp BP Sys/Barnes Pulse Ox Last 24 Hr 98.3 F-98.3 F 59-88 16-20 107-159/55-80 100-100 General appearance: normal weight, no acute distress - Head Head exam: Present: normal inspection, normocephalic - Eye Eye exam: Present: EOMI Pupils: Present: JADYN - Respiratory Respiratory exam: Present: clear to auscultation bilaterally. Absent: wheezes - Cardiovascular Cardiovascular exam: Present: regular rate and rhythm - GI/Abdominal GI/Abdominal exam: Present: normal bowel sounds, soft. Absent: tenderness - Neurological Exam Neurological exam: Present: alert, oriented X3 - Psychiatric Psychiatric exam: Present: normal affect, normal mood - Skin Skin exam: Present: normal color, warm, dry Results - Labs CBC & BMP: 02/12/17 09:48 02/12/17 09:48 Lab Results: I have reviewed the past 24 hour labs <Britt Thompson - Last Filed: 02/12/17 17:17> History of Present Illness History of present illness: Patient seen and examined independently of DIGITAL ARCHIVIST Vincent, agree with history, assessment and plan as documented. Patient recently discharged now readmitted with recurrent GI bleed. GI on board. H/H with slight drop, will transfuse 2 units PRBCs. Exam - Constitutional Vitals: Period Temp Pulse Resp BP Sys/Barnes Pulse Ox Last 24 Hr 96.3 F-98.3 F 59-88 16-20 107-159/55-80 96-100 Results - Labs CBC & BMP: 02/12/17 15:47 02/12/17 09:48
[2017-02-12] MEDS ORDERED: ONDANSETRON 4 MG/2 ML VIAL IV PRN (12:05)
[2017-02-12] MEDS ORDERED: ACETAMINOPHEN 325 MG TABLET PO PRN (12:05)
--- NOTE | 2017-02-12 14:15 | Nuclear Medicine Report ---
Exam: NM GI bleeding Date: 02/12/2017 12:06 PM Comparison: None Indication: GI bleeding Technique:[Patient injected with 20 mCi technetium 99m PYP tagged red blood cells] GI bleeding scans were obtained at the 60 minutes post injection of the isotope. Findings: Evidence of active GI bleeding with abnormal isotopic activity in the ascending colon which extends into the transverse colon. Impression: Evidence of active GI bleeding in the ascending colon. This report was called the patient's nurse, Rukhsana at 2:10 PM on 02/12/2017. Critical test results PROCEDURE INTERPRETED AT [facility] DEPARTMENT OF RADIOLOGY Final Report Signed by: Dr. Sandra Hummel
[2017-02-12 16:12] LABS: Hematocrit 20.3 VOL% (42.0-52.0); Hemoglobin 6.7 GM/DL (14.0-18.0)
[2017-02-12] MEDS: SODIUM CHLORIDE 0.9% 1,000 ML IV SCH (16:35)
[2017-02-12] MEDS ORDERED: SODIUM CHLORIDE 0.9% 250 ML IV PRN ×2 (17:14→17:17)
[2017-02-12] MEDS: ATORVASTATIN 20 MG TABLET PO SCH (20:50)
[2017-02-12] MEDS: PANTOPRAZOLE 40 MG TABLET PO SCH (20:50)
[2017-02-12] MEDS ORDERED: FUROSEMIDE 20 MG/2 ML VIAL IV ONE (23:44)
[2017-02-13] MEDS ORDERED: FUROSEMIDE 20 MG/2 ML VIAL IV ONE ×3 (02:29→20:00)
[2017-02-13 05:50] LABS: Basophils % 0.3 % (0.0-0.8); Eosinophils # 0.1 10*3/uL (0.0-0.87); Eosinophils % 3.8 % (0.00-10.9); Hematocrit 21.1 VOL% (42.0-52.0); Hemoglobin 7.2 GM/DL (14.0-18.0); Immature Granulocytes % 0.3 %; Immature Granulocytes Absolute 0.01 #; Lymphocytes # 0.8 10*3/uL (1.4-4.0); Lymphocytes % 21.9 % (21.2-54.2); Mean Corpuscular HGB Conc 34.1 GM/DL (32-36); Mean Corpuscular Hemoglobin 30 PG (27-34); Mean Corpuscular Volume 86.5 FL (87-102); Mean Platelet Volume 10.3 FL (9.6-12.0); Monocytes # 0.4 10*3/uL (0.11-0.8); Monocytes % 10.8 % (1.7-12.7); Neutrophils # 2.2 10*3/uL (1.4-7.4); Neutrophils % 62.9 % (38.7-73.9); Platelet Count 132 T/CUMM (130-400); Red Blood Count 2.44 MC/CUMM (3.8-5.5); Red Cell Distribution Width 15.9 % (9.3-17.3); White Blood Count 3.4 T/CUMM (4-12)
[2017-02-13 06:16] LABS: Calcium 7.7 MG/DL (8.5-10.1); Osmolality,Calculated 283.8 MOS/KG (273-304); Potassium 3.5 MMOL/L (3.5-5.1)
[2017-02-13] MEDS ORDERED: LOSARTAN 50 MG TABLET PO SCH (09:00)
[2017-02-13 09:04] LABS: Hematocrit 24.1 VOL% (42.0-52.0); Hemoglobin 8.1 GM/DL (14.0-18.0)
[2017-02-13] MEDS: PANTOPRAZOLE 40 MG TABLET PO SCH ×2 (10:20→20:48)
[2017-02-13] MEDS: SODIUM CHLORIDE 0.9% 1,000 ML IV SCH (10:25)
--- NOTE | 2017-02-13 10:54 | Gastrointestinal Progress Note ---
Assessment and Plan (1) Diverticulosis of colon with hemorrhage Status: Acute Assessment and plan: This is a patient Dr. Rose's who I am seeing for him over the weekend. The patient has a positive bleeding scan that appears to target the source of the bleeding to the ascending colon. This was noted on the previous colonoscopy that was done on 11/24/[address] Rose demonstrating diverticulosis in this area. I believe it is incidental that a primary this polyp was found in this region--this is likely not related to the current level of bleeding. We will plan on flushing the patient with 3 times daily MiraLAX to see if ongoing bleeding is occurring. Hopefully this will clear out the old blood. Current Visit: Yes (2) Personal history of colonic polyps Status: Acute Assessment and plan: This proved to be an hyperplastic polyp and will require repeat colonoscopy in 10 years, unless worsening bleeding is noted in which case this will likely have to be repeated sooner. Current Visit: Yes (3) Acute posthemorrhagic anemia Status: Acute Assessment and plan: The patient is gotten 2 units of blood and is due to get another 2 units today. Hopefully this will improve his hematocrit from 24 to hopefully the low 30s. Further recommendations after the above flushing has occurred. Current Visit: Yes (4) Constipation Status: Acute Assessment and plan: The patient is feeling some constipation would like to be on some laxatives going out the door. MiraLAX may certainly help with this. Current Visit: Yes Gastroenterology - PN: Subj Interval history: This patient has a history of previous colonoscopy done by Dr. Rose on at which time he noted pandiverticulosis thought to be the source of the patient's bleeding and a single polyp noted in the ascending colon removed by hot biopsy. Patient is a recurrence of bleeding and has dropped his hematocrit down to 20.3%. Tagged red blood cell scan was positive for a bleeding site in the ascending colon most likely. The patient is due to get another 2 units packed red blood cells today. This will make a total of 4 this admission. Hematocrit is now up to 24.1%. Exam (Progress Note) - Constitutional Vitals: Period Temp Pulse Resp BP Sys/Barnes Pulse Ox Last 24 Hr 96.3 F-99.3 F 59-78 17-20 108-147/55-80 96-100 General appearance: no acute distress - Head Head exam: Present: normocephalic - Eye Eye exam: Present: EOMI Pupils: Present: JADYN - ENT ENT exam: Present: normal oropharynx, other (Edentulous) - Neck Neck exam: Present: normal inspection - Respiratory Respiratory exam: Present: clear to auscultation bilaterally. Absent: rhonchi, stridor, wheezes - Cardiovascular Cardiovascular exam: Present: regular rate and rhythm - GI/Abdominal GI/Abdominal exam: Present: normal bowel sounds, soft. Absent: tenderness, rebound - Extremities Exam Extremities exam: Absent: edema - Neurological Exam Neurological exam: Present: alert, oriented X3 - Psychiatric Psychiatric exam: Present: normal affect, normal mood - Skin Skin exam: Present: warm Results - Labs CBC & BMP: 02/13/17 08:25 02/13/17 05:40
--- NOTE | 2017-02-13 12:18 | Hospitalist Progress Note ---
Assessment and Plan (1) Lower gastrointestinal hemorrhage Status: Resolved Assessment and plan: received 6 units during last admission, Will give another 2 units of PRBC now and has already received 2, bleeding scan positive, will need IR for embolization, D/W Dr. Agosto. Moving him to the ICU. Current Visit: No (2) Atrial fibrillation Status: Chronic Assessment and plan: rate controlled Current Visit: No (3) CHF (congestive heart failure) Status: Chronic Assessment and plan: echo ef 35% severe MR, no hydration Current Visit: Yes Qualifiers: Congestive heart failure type: unspecified congestive heart failure type Congestive heart failure chronicity: chronic Qualified Code(s): I50.9 - Heart failure, unspecified (4) Hypertension Status: Acute Assessment and plan: hold losartan due to bleeding could drop low hgb Current Visit: No (5) Hypokalemia Status: Acute Assessment and plan: replaced. Current Visit: No Hospitalist: Subjective Interval history: This is the second admission in the last week for bleeding. Patient was initially cared for earlier and received 4 units of packed red blood cells and discharge. He immediately returned right with bright red blood per rectum. Bleeding scan last time was negative bleeding scan at this time says bleeding in the descending colon. I have asked surgery to see him as I am concerned he may need intervention. Continue serial hemoglobins. Exam - Constitutional Vitals: Period Temp Pulse Resp BP Sys/Barnes Pulse Ox Last 24 Hr 97.2 F-99.3 F 59-78 17-20 108-135/55-70 98-100 Exam: Heart Rate-[RRR] Lungs-[CTAB] GI-[+bs soft, NT] Ext-[no edema] Neuro [Motor 5/5], [alert and oriented times 3] psych [normal mood and affect] General [no acute distress] Hearing extremely hard of hearing Results - Labs CBC & BMP: 02/13/17 08:25 02/13/17 05:40 Lab Results: I have reviewed the past 24 hour labs - Diagnostic Findings Procedure: Ultrasound: report reviewed by me (echo ef 35% severe MR ), X-ray: report reviewed by me (bleeding scan positive in descending colon)
--- NOTE | 2017-02-13 12:35 | Hospitalist Progress Note ---
Assessment and Plan (1) Lower gastrointestinal hemorrhage Status: Resolved Assessment and plan: received 6 units during last admission, Will give another 2 units of PRBC now and has already received 2, bleeding scan positive, will need IR for embolization, D/W Dr. Agosto. Moving him to the ICU. Current Visit: No (2) Atrial fibrillation Status: Chronic Assessment and plan: rate controlled Current Visit: No (3) CHF (congestive heart failure) Status: Chronic Assessment and plan: echo ef 35% severe MR, no hydration Current Visit: Yes Qualifiers: Congestive heart failure type: unspecified congestive heart failure type Congestive heart failure chronicity: chronic Qualified Code(s): I50.9 - Heart failure, unspecified (4) Hypertension Status: Acute Assessment and plan: hold losartan due to bleeding could drop low hgb Current Visit: No (5) Hypokalemia Status: Acute Assessment and plan: replaced. Current Visit: No Hospitalist: Subjective Interval history: Patient was up all night having bowel movements. She had approximately 12 last night. She has poor appetite and is getting weaker. Contacted Dr. Vazquez and ask them to see her today. He has stopped the Flagyl. He would recommend a taper of her vancomycin over a period of time. Exam - Constitutional Vitals: Period Temp Pulse Resp BP Sys/Barnes Pulse Ox Last 24 Hr 97.2 F-99.3 F 59-78 17-20 108-135/49-70 98-100 Exam: Heart Rate-[iRR] Lungs-[CTAB] GI-[+bs soft, NT] Ext-[no edema] Neuro [Motor 5/5 extremely weak], [alert and oriented times 3] psych [anxious mood and affect] General [no acute distress] Hearing extremely hard of hearing Results - Labs CBC & BMP: 02/13/17 08:25 02/13/17 05:40 Lab Results: I have reviewed the past 24 hour labs - Diagnostic Findings Procedure: X-ray: report reviewed by me (Positive bleeding scan and the descending colon)
--- NOTE | 2017-02-13 12:46 | General Surgery Consult Note ---
Assessment and Plan (1) Lower gastrointestinal hemorrhage Status: Resolved Assessment and plan: Impression: GI bleed. Plan: Tagged red cell scan suggests the bleeding is coming from the right descending colon. Dr. Rose's note reviewed. Agree with interventional radiology for embolization. The patient has been drinking today. He remains stable. Will consult IR for angiography and embolization to be performed in the morning. He will remain n.p.o. at midnight. Discussed the possibility of operative intervention as a last resort. Patient has multiple medical problems. They are in agreement with angiography and embolization. Current Visit: No History of Present Illness Chief complaint: GI bleed History of present illness: Mr. Mayers is a 86 year old male admitted with GI bleed. This is the second admission in the last week. He is currently getting blood. With the 2 admissions combined this is the ninth and 10th unit of packed red blood cells. He denies abdominal pain. He says he had quite a bit of bleeding throughout the night but this morning it has improved. His vitals have remained stable. Home Medications Medication Instructions Recorded Confirmed Type Aspirin 325 mg PO QAM 11/20/16 02/12/17 History Atorvastatin [Lipitor] 20 mg PO BEDTIME 11/20/16 02/12/17 History Losartan Potassium 100 mg PO QAM 02/05/17 02/12/17 History Furosemide [Furosemide] 80 mg PO QAM PRN 02/12/17 02/12/17 History Allergies Allergy/AdvReac Type Severity Reaction Status Date / Time No Known Allergies Allergy Verified 02/05/17 10:08 Medical,Surgical,& Family Hx - Medical History Cardio: History of: Cardiac Dysrhythmia (A-fib), CHF, Hypertension, Pacemaker Neurology: No history of: Seizures HEENT: History of: Ear Problem (Hard of Hearing) Endocrine: History of: Dyslipidemia Gastrointestinal: History of: Diverticulitis/ Diverticulosis, Gastrointestinal Bleed Musculoskeletal: Comment Only: Musculoskeletal Problems ("joints get stiff") - Surgical History Abdominal Surgeries: Surgical HX of: Colonoscopy Orthopedic Surgeries: Patient denies;: Orthopedic Surgery - Family History Family History: Reports;: Family Hypertension - Social History Smoking Status: Never smoker Frequency of Alcohol Use: None Type of Drug Use: None 12 point system: reviewed and no additional remarkable complaints except as stated Exam - Constitutional Vitals: Period Temp Pulse Resp BP Sys/Barnes Pulse Ox Last 24 Hr 97.2 F-99.3 F 59-78 17-20 108-135/49-70 98-100 General appearance: no acute distress - Head Head exam: Present: normocephalic - Neck Neck exam: Present: normal inspection - Respiratory Respiratory exam: Present: clear to auscultation bilaterally - Cardiovascular Cardiovascular exam: Present: irregular rhythm - GI/Abdominal GI/Abdominal exam: Present: soft (Nontender and nondistended) - Extremities Exam Extremities exam: Present: normal inspection - Back Exam Back exam: Present: normal inspection - Neurological Exam Neurological exam: Present: alert, oriented X3 Speech: Present: normal - Skin Skin exam: Present: normal color Results - Labs CBC & BMP: 02/13/17 08:25 02/13/17 05:40 Lab Results: I have reviewed the past 24 hour labs
[2017-02-13] MEDS ORDERED: CALCIUM GLUCONATE 2,000 MG in SODIUM CHLORIDE 0.9% 100 ML IV ONE (14:30)
[2017-02-13] MEDS: POLYETHYLENE GLYCOL POWDER 17 GM PACK PO SCH ×2 (14:30→20:48)
[2017-02-13] MEDS ORDERED: FUROSEMIDE 40 MG/4 ML VIAL IV ONE (20:42)
[2017-02-13] MEDS: ATORVASTATIN 20 MG TABLET PO SCH (20:48)
[2017-02-13 22:19] LABS: Hematocrit 27.6 VOL% (42.0-52.0); Hemoglobin 9.3 GM/DL (14.0-18.0)
[2017-02-14 05:12] LABS: Basophils % 0.3 % (0.0-0.8); Eosinophils # 0.2 10*3/uL (0.0-0.87); Eosinophils % 4.5 % (0.00-10.9); Hemoglobin 8.6 GM/DL (14.0-18.0); Immature Granulocytes % 0.3 %; Immature Granulocytes Absolute 0.01 #; Lymphocytes # 0.6 10*3/uL (1.4-4.0); Lymphocytes % 18.7 % (21.2-54.2); Mean Corpuscular HGB Conc 34.4 GM/DL (32-36); Mean Corpuscular Hemoglobin 29 PG (27-34); Mean Corpuscular Volume 84.7 FL (87-102); Mean Platelet Volume 10.3 FL (9.6-12.0); Monocytes # 0.3 10*3/uL (0.11-0.8); Monocytes % 9.5 % (1.7-12.7); Neutrophils # 2.3 10*3/uL (1.4-7.4); Neutrophils % 66.7 % (38.7-73.9); Platelet Count 158 T/CUMM (130-400); Red Blood Count 2.95 MC/CUMM (3.8-5.5); Red Cell Distribution Width 15.3 % (9.3-17.3); White Blood Count 3.4 T/CUMM (4-12)
[2017-02-14 05:24] LABS: INR 1.2; PT Patient Result 12.3 SECS; Partial Thromboplastin Time 25.3 SECS (0-40)
[2017-02-14 05:40] LABS: Calcium 8.3 MG/DL (8.5-10.1); Osmolality,Calculated 284.7 MOS/KG (273-304); Potassium 3.3 MMOL/L (3.5-5.1)
[2017-02-14] MEDS ORDERED: CALCIUM GLUCONATE 2,000 MG in SODIUM CHLORIDE 0.9% 100 ML IV ONE (06:00)
--- NOTE | 2017-02-14 07:54 | Gastrointestinal Progress Note ---
Assessment and Plan (1) Diverticulosis of colon with hemorrhage Status: Acute Assessment and plan: This is a patient Dr. Rose's who I am seeing for him over the weekend. The patient has a positive bleeding scan that appears to target the source of the bleeding to the ascending colon. This was noted on the previous colonoscopy that was done on 11/24/[address] Rose demonstrating diverticulosis in this area. I believe it is incidental that a primary this polyp was found in this region--this is likely not related to the current level of bleeding. We will plan on flushing the patient with 3 times daily MiraLAX to see if ongoing bleeding is occurring. Hopefully this will clear out the old blood. 02/14/17--The patient was transferred down to the ICU for closer observation given the previous positive bleed. I do note this patient had diverticulosis through the colon evidenced by Dr. Rose his previous colonoscopy. Fortunately we now know that the bleeding appeared to be coming from the ascending colon likely from a diverticulum in this area, I remain dubious that he continues having bleeding from this area now given the relative stability of his hematocrit over the evening time. I know that interventional radiology has been contacted to perform arteriography this morning but I am extremely doubtful this will yield a positive results leading to an embolization if the patient is not actively bleeding at this time. I suspect that if a tagged red blood cell scan was repeated today this would be negative. It might be better to wait, from a resource utilization standpoint, until the patient has his next major bleed --> perform tagged red blood cell scan immediately followed by arteriography if a positive result is noted at that time. Most of these diverticular bleeds stop spontaneously, as it appears this may have. Current Visit: Yes (2) Personal history of colonic polyps Status: Acute Assessment and plan: This proved to be an hyperplastic polyp and will require repeat colonoscopy in 10 years, unless worsening bleeding is noted in which case this will likely have to be repeated sooner. 02/14/17--The patient should have his next colonoscopy with Dr. Rose in 10 years Current Visit: Yes (3) Acute posthemorrhagic anemia Status: Acute Assessment and plan: The patient is gotten 2 units of blood and is due to get another 2 units today. Hopefully this will improve his hematocrit from 24 to hopefully the low 30s. Further recommendations after the above flushing has occurred. 02/14/17--the patient's hematocrit is evidenced a slow drift from 27 down to 25.0 %--might suggest simply watching him at this point either down the unit her up on the floor before attempting to do a tagged red blood cell scan or proceeding with arteriography. I believe the yield would be quite low with both of these. I have been attempting to flush them out with MiraLAX to see if he is continuing to bleed, will write for a soapsuds enema this morning as well. Continue with MiraLAX. Current Visit: Yes (4) Constipation Status: Acute Assessment and plan: The patient is feeling some constipation would like to be on some laxatives going out the door. MiraLAX may certainly help with this. 02/14/17--If the patient is not responding to MiraLAX by tomorrow we might consider switching over to Linzess 290 mg per day as a alternate laxative. Current Visit: Yes Gastroenterology - PN: Subj Interval history: The patient has not had any further bloody bowel movements over the evening time and his hematocrit is drifted down slightly from 27.6 posttransfusion to 25.0% this morning. I do not find this particularly impressive, it may represent equilibration. The patient is getting MiraLAX to help flush his colon , tut this does not appear to be doing much yet. Exam (Progress Note) - Constitutional Vitals: Period Temp Pulse Resp BP Sys/Barnes Pulse Ox Last 24 Hr 97.1 F-99.1 F 49-72 10-55 110-155/45-81 91-100 General appearance: no acute distress - Eye Eye exam: Present: EOMI Pupils: Present: JADYN - ENT ENT exam: Present: other (This patient is quite deaf.) - Respiratory Respiratory exam: Present: clear to auscultation bilaterally. Absent: rhonchi, stridor, wheezes - Cardiovascular Cardiovascular exam: Present: regular rate and rhythm - GI/Abdominal GI/Abdominal exam: Present: normal bowel sounds, soft. Absent: distended, guarding, tenderness, rebound - Extremities Exam Extremities exam: Absent: edema - Neurological Exam Neurological exam: Present: alert, oriented X3, altered (The patient is hearing impaired) - Psychiatric Psychiatric exam: Present: normal affect, normal mood - Skin Skin exam: Present: warm Results - Labs CBC & BMP: 02/14/17 04:54 02/14/17 04:54
[2017-02-14] MEDS ORDERED: HEPARIN/NACL 0.9% 2 UNITS/ML 2,000 ML IV ONE (09:04)
[2017-02-14] MEDS ORDERED: MIDAZOLAM 2 MG/2 ML VIAL ONE (09:05)
[2017-02-14] MEDS ORDERED: fentaNYL 100 MCG/2 ML VIAL ONE (09:05)
--- NOTE | 2017-02-14 09:10 | History and Physical Update ---
Sedation H&P Update - History and Physical H&P was reviewed, the patient examined and there: are no changes in the patients condition since last H&P was completed. - Dictation Physical: refer to scanned H&P - Physical Exam Mental Status: alert and oriented Heart: other (cardiac arrythmia) Lung: clear to auscultation Abdomen: within normal limits Vitals: within normal limits - Sedation Plan for Sedation: moderate Patient Consent: Procedure disscussed with patient and patinet has consented., Risks and benefits were discussed with patient,including infection,, bleeding, injury to surrounding structures, seizure, temporary nerve, Patient understands and accepts potential risks/benefits and agrees to ASA Class: II Airway Assessment: Class I: Soft palate, uvula, fauces, pillars visible
[2017-02-14] MEDS ORDERED: MIDAZOLAM 2 MG/2 ML VIAL IV ONE (09:16)
[2017-02-14] MEDS ORDERED: fentaNYL 100 MCG/2 ML VIAL IV ONE (09:16)
[2017-02-14] MEDS ORDERED: SODIUM CHLORIDE 0.45% 1,000 ML IV SCH ×2 (09:30→11:00)
[2017-02-14 09:53] LABS: Apearance,Urine CLEAR (Clear); Bacteria,Urine Occasional /HPF (Few); Bilirubin,Urine Negative (Negative); Blood, Urine Moderate mg/dL (Negative); Glucose,Urine (UA) Negative (Negative); Hyaline Casts,Urine 1 /LPF (0-3); Ketones,Urine Negative (Negative); Mucus,Urine Occasional /LPF (Occasional); Nitrite,Urine Negative (Negative); Protein,Urine Negative; RBC,Urine 133 /HPF (0-4); Squamous Epithelial Cell,Urine Occasional /HPF (0-10); Urine Color Yellow (Yellow); Urine Specific Gravity 1.012 (1.001-1.035); WBC,Urine 2 /HPF (0-6)
[2017-02-14] MEDS ORDERED: POTASSIUM CHLORIDE 20 MEQ TABLET PO ONE (11:01)
--- NOTE | 2017-02-14 11:01 | Hospitalist Progress Note ---
Assessment and Plan (1) Lower gastrointestinal hemorrhage Status: Resolved Assessment and plan: IR for embolization, continue to monitor hemoglobin every 6 hours. Current Visit: No (2) Atrial fibrillation Status: Chronic Assessment and plan: rate controlled currently paced rhythm Current Visit: No (3) CHF (congestive heart failure) Status: Chronic Assessment and plan: echo ef 35% severe MR, BNP 195 Current Visit: Yes Qualifiers: Congestive heart failure type: unspecified congestive heart failure type Congestive heart failure chronicity: chronic Qualified Code(s): I50.9 - Heart failure, unspecified (4) Hypertension Status: Acute Assessment and plan: restart losartan Current Visit: No (5) Hypokalemia Status: Acute Assessment and plan: replaced and recheck in am Current Visit: No (6) Acute blood loss anemia Status: Acute Assessment and plan: Patient has received a total of 4 units of packed red blood cells. 3 units of FFP and 1 pack of platelets. Current Visit: Yes Hospitalist: Subjective Interval history: No bloody bowel movements overnight, interventional will embolize artery to the descending colon. Patient received no packed red blood cells last night Exam - Constitutional Vitals: Period Temp Pulse Resp BP Sys/Barnes Pulse Ox Last 24 Hr 97.1 F-99.1 F 48-72 10-55 110-196/45-95 91-100 Exam: Heart Rate-[IRR] Lungs-[CTAB] GI-[+bs soft, NT] Ext-[no edema] Neuro [Motor 5/5 extremely weak], [alert and oriented times 3] psych [anxious mood and affect] General [no acute distress] Hearing extremely hard of hearing Results - Labs CBC & BMP: 02/14/17 04:54 02/14/17 04:54 Lab Results: I have reviewed the past 24 hour labs
--- NOTE | 2017-02-14 11:02 | Post Interventional Procedure ---
Pre-op diagnosis: gi bleed Post-op diagnosis: same (no active bleed) Procedure: mesenteric angio Radiologist: Eugene Gunn Medications: vanda 1 mg,fentanyl 50 mcg 1% local lidocain Total Sedation Time: 75 min Specimens: none sent Estimated blood loss: minimal Complications: none Condition: stable Description/Findings: mesenteric sharon and selected celiac angio ,sma ans sub branch injectionno active bleed Assessment and Plan - Time spent with patient Time spent with patient: Greater than 30 minutes
[2017-02-14] MEDS: POLYETHYLENE GLYCOL POWDER 17 GM PACK PO SCH ×3 (11:54→20:43)
[2017-02-14] MEDS: LOSARTAN 50 MG TABLET PO SCH (11:54)
[2017-02-14] MEDS: PANTOPRAZOLE 40 MG TABLET PO SCH ×2 (11:59→20:43)
--- NOTE | 2017-02-14 12:35 | Interventional Radiology Rpt ---
Exam: IR angio mesenteric with subselective cannulization of three-vessel branches of the mesenteric artery, IR angio celiac. Subselective cannulization of the splenic artery and hepatic artery Angiogram flush of the aorta nonselective Conscious sedation initial 15 minutes Additional conscious sedation total of 60 minutes for a total of 75 minutes conscious sedation time Date: 02/14/2017 9:08 AM Indication: GI bleeding Comparison: GI bleed exam 02/12/2017 Vascular interventional radiologist Eugene Gunn D.O. Fluoroscopy time 34 minutes total of 382 images were obtained 157 cc Omnipaque 350. Findings: The risk and benefits were explained to the patient and informed consent was obtained. Patient was placed on examination table and conscious sedation was then performed with 1 mg of Versed and 50 mcg of fentanyl and 1% local lidocaine with vital signs monitored prior during and after procedure with [id number] time for a total of 75 minutes. The right groin was prepped with ChloraPrep and 1% local lidocaine was administered. Micropuncture needle was placed in 018 Angelia was advanced a 6 Welsh sheath was placed after small stab wound was made. Sulci on the flush catheter was placed with AP and subsequently lateral angiogram performed of the abdominal aorta iliac vessels. A C2 catheter was placed with attempted cannulization however the curves were inappropriate and subsequently a long guiding sheath was then exchanged and placed 6 Welsh with subsequent placement of a S2 catheter with selective cannulization of the celiac trunk and subsequently the splenic artery and the hepatic artery and visualization of the branches. This include a gastroduodenal. The superior mesenteric artery was then cannulated and subselective cannulization of ileocolic and jejunal branches and subsequent subselective cannulization's were performed for a total of 4 vessels evaluation from the SMA. The inferior mesenteric artery is not clearly delineated. The catheters and sheaths were removed and hemostasis was obtained with a tiny small hematoma present. Radiographic findings: The abdominal aorta is demonstrated. 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 The exam was tortuosity of the vessels present. The common iliac internal and external arteries are patent. Left renal artery is intact. The splenic artery is unremarkable. The hepatic and gastroduodenal arteries are unremarkable. The pancreaticoduodenal arcade is otherwise intact. The superior mesenteric artery injection reveals no obvious bleeding diaphysis site present on multiple injections of branch vessels. No obvious angiodysplasia or bleeding diaphysis site clearly demonstrated no extravasation of contrast demonstrated. Estimated blood loss minimal Complications none Condition stable Specimen none. Impression: Satisfactory mesenteric arteriogram with no obvious bleeding diaphysis site clearly demonstrated with injection of the celiac and superior mesenteric vasculature with subsequent multiple subselective injections revealing no obvious bleeding site demonstrated. Inferior mesenteric artery is not clearly delineated If this patient rebleeds an emergent CT angiogram of the abdomen and pelvis is recommended for this patient. PROCEDURE INTERPRETED AT [facility] DEPARTMENT OF RADIOLOGY Final Report Signed by: Dr. Eugene Gunn
[2017-02-14] MEDS: ATORVASTATIN 20 MG TABLET PO SCH (20:43)
[2017-02-15 06:49] LABS: Basophils % 0.4 % (0.0-0.8); Eosinophils # 0.1 10*3/uL (0.0-0.87); Eosinophils % 2.4 % (0.00-10.9); Hematocrit 25.3 VOL% (42.0-52.0); Hemoglobin 8.4 GM/DL (14.0-18.0); Immature Granulocytes % 0.2 %; Immature Granulocytes Absolute 0.01 #; Lymphocytes # 0.6 10*3/uL (1.4-4.0); Lymphocytes % 10.8 % (21.2-54.2); Mean Corpuscular HGB Conc 33.2 GM/DL (32-36); Mean Corpuscular Hemoglobin 29 PG (27-34); Mean Corpuscular Volume 87.2 FL (87-102); Mean Platelet Volume 10.6 FL (9.6-12.0); Monocytes # 0.4 10*3/uL (0.11-0.8); Monocytes % 7.2 % (1.7-12.7); Neutrophils # 4.4 10*3/uL (1.4-7.4); Platelet Count 165 T/CUMM (130-400); Red Cell Distribution Width 15.4 % (9.3-17.3); White Blood Count 5.5 T/CUMM (4-12)
[2017-02-15 07:10] LABS: Calcium 8.2 MG/DL (8.5-10.1); Osmolality,Calculated 280.1 MOS/KG (273-304); Potassium 3.9 MMOL/L (3.5-5.1)
[2017-02-15 07:11] LABS: Elliptocytes Few; Giant Platelets Few; Hypochromasia 1+; Platelet Estimate Normal
[2017-02-15 07:12] LABS: Microcytosis Slight
[2017-02-15] MEDS: POLYETHYLENE GLYCOL POWDER 17 GM PACK PO SCH ×3 (08:43→21:39)
[2017-02-15] MEDS: LOSARTAN 50 MG TABLET PO SCH (08:43)
[2017-02-15] MEDS: PANTOPRAZOLE 40 MG TABLET PO SCH ×2 (08:43→21:39)
--- NOTE | 2017-02-15 09:49 | Gastrointestinal Progress Note ---
<Sue Hidalgo Reuben - Last Filed: 02/15/17 09:47> Assessment and Plan (1) GI bleeding Status: Resolved Assessment and plan: 02/15-no further rectal bleeding reported over the weekend. H&H remained stable. Tolerating diet. Continue to monitor present time. Plan an addendum to followed by Dr. Rose. 02/12-onset of bright red rectal bleeding followed by dark red blood in stool last night. No complaints of abdominal pain or other associated symptoms. Findings of anemia on admission. Recent discharge noted 2 days ago with inpatient stay for GI bleeding and transfusions. History of diverticular disease. Monitor serial H&H and transfuse as necessary. If GI bleeding recurs , obtain stat GI bleeding scan. May have clear liquid diet at this time. Plan an addendum to followed by Dr. Rose. Current Visit: No Gastroenterology - PN: Subj Interval history: Cc: GI bleed Patient is seen awake and alert. States he had an uneventful weekend. He states that he has had no further rectal bleeding in the past couple of days. He denies any abdominal pain, nausea or vomiting. He is tolerating a regular diet well. He is noted on yesterday to undergo mesenteric angiogram with no findings of active bleeding at that time without embolization. His H&H is holding at this time at 01/08. He has had a total of 4 units of packed red blood cells, 3 units of plasma, and 1 unit of platelets since admission. His last transfusion was on 02/13. Abdomen is soft, nontender. He did have a normal bowel movement this morning without any active bleeding noted. ROS: Denies shortness of breath or chest pain Exam (Progress Note) - Constitutional Vitals: Period Temp Pulse Resp BP Sys/Barnes Pulse Ox Last 24 Hr 97.8 F-99.1 F 52-90 11-22 117-182/52-95 93-100 General appearance: normal weight, no acute distress - Head Head exam: Present: normal inspection, normocephalic - Eye Eye exam: Present: other (Lids and conjunctivae are unremarkable). Absent: scleral icterus - ENT ENT exam: Present: normal exam, normal oropharynx - Neck Neck exam: Present: normal inspection - Respiratory Respiratory exam: Present: clear to auscultation bilaterally. Absent: rales, rhonchi, wheezes - Cardiovascular Cardiovascular exam: Present: regular rate and rhythm. Absent: diastolic murmur , JVD, systolic murmur - GI/Abdominal GI/Abdominal exam: Present: normal bowel sounds, soft. Absent: ascites, distended, mass, organomegaly, tenderness - Extremities Exam Extremities exam: Present: normal inspection, full ROM - Back Exam Back exam: Present: normal inspection - Neurological Exam Neurological exam: Present: alert, oriented X3 - Psychiatric Psychiatric exam: Present: normal affect, normal mood - Skin Skin exam: Present: normal color, warm, dry Results - Labs CBC & BMP: 02/15/17 05:49 02/15/17 05:49 Lab Results: I have reviewed the past 24 hour labs <Matt Rose - Last Filed: 02/15/17 22:39> Exam (Progress Note) - Constitutional Vitals: Period Temp Pulse Resp BP Sys/Barnes Pulse Ox Last 24 Hr 97.4 F-98.8 F 60-96 11-22 117-147/52-97 96-100 Results - Labs CBC & BMP: 02/15/17 05:49 02/15/17 05:49
--- NOTE | 2017-02-15 10:34 | General Surgery Progress Note ---
Assessment and Plan (1) GI bleeding Status: Resolved Assessment and plan: H&H stable. No further evidence of rectal bleeding. No surgical indication at this time. Current Visit: No Subjective Patient reports: Present: other (Per nursing, the patient has had a nonbloody bowel movement. His H&H is stable. No abdominal pain evident.) Exam - Constitutional Vitals: Period Temp Pulse Resp BP Sys/Barnes Pulse Ox Last 24 Hr 97.8 F-99.1 F 52-90 11-22 117-182/52-97 93-100 - GI/Abdominal GI/Abdominal exam: Present: hypoactive bowel sounds, soft. Absent: distended, tenderness Results - Labs CBC & BMP: 02/15/17 05:49 02/15/17 05:49 Lab Results: I have reviewed the past 24 hour labs
--- NOTE | 2017-02-15 14:22 | Hospitalist Progress Note ---
Hospitalist: Subjective Interval history: Patient awake and comfortable. He was admitted with GI bleed, no further episodes this morning. Exam - Constitutional Vitals: Period Temp Pulse Resp BP Sys/Barnes Pulse Ox Last 24 Hr 97.9 F-99.1 F 60-90 11-22 117-162/52-97 94-100 Exam: General: No Acute Distress HEENT: Normocephalic, atraumatic, Extra ocular movements intact Neck: Supple, No JVD Chest: Clear to auscultation B/L CV: S1 + S2 audible without murmur, gallop or rub Abd: soft, NT, Non-distended, BS + Ext: No edema Skin: No purpura, bruising or rash Rheumatologic: No Joint deformities Neurologic: Awake and alert Results - Labs CBC & BMP: 02/15/17 05:49 02/15/17 05:49 - Impressions Assessment and Plan: LGI bleed/rectal bleed Status: Acute Assessment and plan: No further rectal bleeding episodes over the weekend, monitor closely. HCT stable after transfusion. He has history of diverticulosis on previous colonoscopy Current Visit: No Anemia of acute GI blood loss Status: Acute Assessment and plan: He received packed RBCs, hematocrit has been stable since Current Visit: No Transfer to floor from ICU
[2017-02-15] MEDS: ATORVASTATIN 20 MG TABLET PO SCH (21:39)
[2017-02-16 07:10] LABS: Basophils % 0.4 % (0.0-0.8); Eosinophils # 0.2 10*3/uL (0.0-0.87); Eosinophils % 2.9 % (0.00-10.9); Hemoglobin 8.2 GM/DL (14.0-18.0); Immature Granulocytes % 0.4 %; Immature Granulocytes Absolute 0.02 #; Lymphocytes # 0.7 10*3/uL (1.4-4.0); Mean Corpuscular HGB Conc 32.8 GM/DL (32-36); Mean Corpuscular Hemoglobin 29 PG (27-34); Mean Corpuscular Volume 89.3 FL (87-102); Mean Platelet Volume 10.6 FL (9.6-12.0); Monocytes # 0.4 10*3/uL (0.11-0.8); Neutrophils # 3.9 10*3/uL (1.4-7.4); Neutrophils % 75.3 % (38.7-73.9); Platelet Count 165 T/CUMM (130-400); Red Cell Distribution Width 15.5 % (9.3-17.3); White Blood Count 5.1 T/CUMM (4-12)
[2017-02-16 07:40] LABS: Calcium 8.4 MG/DL (8.5-10.1); Magnesium 2.4 MG/DL (1.8-2.4); Osmolality,Calculated 279.1 MOS/KG (273-304); Potassium 4.1 MMOL/L (3.5-5.1)
--- NOTE | 2017-02-16 08:43 | Gastrointestinal Progress Note ---
<Sue Hidalgo Reuben - Last Filed: 02/16/17 08:41> Assessment and Plan (1) GI bleeding Status: Resolved Assessment and plan: 02/16-no overt bleeding. H&H is stable. Tolerating diet well. Plan an addendum to followed by Dr. Rose. 02/15-no further rectal bleeding reported over the weekend. H&H remained stable. Tolerating diet. Continue to monitor present time. Plan an addendum to followed by Dr. Rose. 02/12-onset of bright red rectal bleeding followed by dark red blood in stool last night. No complaints of abdominal pain or other associated symptoms. Findings of anemia on admission. Recent discharge noted 2 days ago with inpatient stay for GI bleeding and transfusions. History of diverticular disease. Monitor serial H&H and transfuse as necessary. If GI bleeding recurs , obtain stat GI bleeding scan. May have clear liquid diet at this time. Plan an addendum to followed by Dr. Rose. Gastroenterology - PN: Subj Interval history: Cc: GI bleed Patient is seen, awake and alert sitting up in bed. States he had an uneventful night. States he has had 2 bowel movements since being transferred out from ICU and that there was no overt bleeding reported these to be greenish brown stools. His appetite is improving and tolerating his diet well. He denies any abdominal pain, nausea or vomiting. H&H is holding 01/08. Abdomen soft, nontender. ROS: Denies shortness of breath or chest pain Exam (Progress Note) - Constitutional Vitals: Period Temp Pulse Resp BP Sys/Barnes Pulse Ox Last 24 Hr 97.4 F-98.8 F 60-96 12-20 117-147/58-97 94-100 General appearance: normal weight, no acute distress - Head Head exam: Present: normal inspection, normocephalic - Eye Eye exam: Present: other (Lids and conjunctivae are unremarkable). Absent: scleral icterus - ENT ENT exam: Present: normal exam, normal oropharynx - Neck Neck exam: Present: normal inspection - Respiratory Respiratory exam: Present: clear to auscultation bilaterally. Absent: rales, rhonchi, wheezes - Cardiovascular Cardiovascular exam: Present: regular rate and rhythm. Absent: diastolic murmur , JVD, systolic murmur - GI/Abdominal GI/Abdominal exam: Present: normal bowel sounds, soft. Absent: ascites, distended, mass, organomegaly, tenderness - Extremities Exam Extremities exam: Present: normal inspection, full ROM - Back Exam Back exam: Present: normal inspection - Neurological Exam Neurological exam: Present: alert, oriented X3 - Psychiatric Psychiatric exam: Present: normal affect, normal mood - Skin Skin exam: Present: normal color, warm, dry Results - Labs CBC & BMP: 02/16/17 04:32 02/16/17 04:32 Lab Results: I have reviewed the past 24 hour labs Specialty Discharge - Follow Up or Referrals Follow up with: Your, PCP [Other] - 2 Weeks (With H&H) <Matt Rose - Last Filed: 02/16/17 22:10> Exam (Progress Note) - Constitutional Vitals: Period Temp Pulse Resp BP Sys/Barnes Pulse Ox Last 24 Hr 97.6 F-98.8 F 60-82 16-20 129-142/59-76 94-98 Results - Labs CBC & BMP: 02/16/17 04:32 02/16/17 04:32
[2017-02-16] MEDS: POLYETHYLENE GLYCOL POWDER 17 GM PACK PO SCH (09:29)
[2017-02-16] MEDS: LOSARTAN 50 MG TABLET PO SCH (09:29)
[2017-02-16] MEDS: PANTOPRAZOLE 40 MG TABLET PO SCH (09:29)
--- NOTE | 2017-02-16 09:53 | General Surgery Progress Note ---
Assessment and Plan (1) GI bleeding Status: Resolved Assessment and plan: H&H stable. No further evidence of rectal bleeding. Dr. Agosto follow. Current Visit: No Subjective Patient reports: Present: no new complaints (Patient reports to normal caliber bowel movements this morning without melena or hematochezia present no abdominal pain. He is tolerating oral intake without difficulty.) Exam - Constitutional Vitals: Period Temp Pulse Resp BP Sys/Barnes Pulse Ox Last 24 Hr 97.4 F-98.8 F 60-96 12-20 117-147/58-97 94-100 General appearance: no acute distress - GI/Abdominal GI/Abdominal exam: Present: normal bowel sounds, soft. Absent: distended, mass , tenderness - Neurological Exam Neurological exam: Present: alert - Skin Skin exam: Present: normal color Results - Labs CBC & BMP: 02/16/17 04:32 02/16/17 04:32 Lab Results: I have reviewed the past 24 hour labs Labs: Hemoglobin and hematocrit trend: February 14 8.07/11, February to 8.09/08.3, February 16.07/11
--- NOTE | 2017-02-16 11:55 | Discharge Summary ---
Hospital Course - Hospital Course Hospital Course: -year-old -[place] male with history of hypertension, A. fib, CHF, pacemaker, and diverticulitis with history of GI bleed admitted by the hospitalist on 02/12/2017 with rectal bleeding. Patient had just previously been discharged 2 days prior for GI bleeding where he received multiple units of blood. Dr. Rose from GI was consulted and GI bleeding scan was ordered. The tagged red cell scan suggested the bleeding was coming from the right descending colon. Dr. Agosto from surgery was consulted and he recommended angiography and embolization. Patient was taken on 02/14/[address] Gunn performed satisfactory mesenteric arteriogram with no obvious bleeding sites found. Patient is received a total of 4 units of RBCs, 3 fresh frozen plasma, and 1 single donor platelets. His H&H has stabilized at 8.2/25 and he has had no further bleeding. He has had multiple bowel movements with normal color and consistency. Patient's case has been discussed with Dr. Rose and Dr. Agosto. Patient has been taking aspirin 325 mg daily and this will be stopped. If patient starts bleeding again he will need to have a CT angiogram done to pinpoint the bleeding. If Dr. Agosto can isolate the spot then he can perform hemicolectomy if needed. Patient will be discharged home and complete instructions were given. Care coordination, chart review, completed discharge paperwork took approximately 36 minutes. - Time spent with patient Time with patient DS: Greater than 30 minutes Diagnosis - Discharge Diagnosis (1) Atrial fibrillation Status: Chronic (2) GI bleeding Status: Resolved (3) Hypertension Status: Chronic Discharge Plan - Discharge Data Disposition: Disch To Home/Self Care Condition at Discharge: Stable Discharge Diet: advance to your usual diet Activity: resume usual activities as tolerated Contact your physician if you experience:: Bleeding - Discharge Medications New Pantoprazole Tab [Protonix Tab] 40 mg PO BID #60 tablet Continue Atorvastatin [Lipitor] 20 mg PO BEDTIME Losartan Potassium 100 mg PO QAM Furosemide 80 mg PO QAM PRN PRN Reason: fluid Discontinued Aspirin 325 mg PO QAM - Follow Up or Referral Follow Up: Your, PCP [Other] - 2 Weeks (With H&H) - Forms/Instructions Exam - Constitutional Vitals: Period Temp Pulse Resp BP Sys/Barnes Pulse Ox Last 24 Hr 97.4 F-98.8 F 60-96 14-20 129-147/59-76 94-100 Exam: 86-year-old -[place] male, no acute distress, alert and oriented Chest clear CV irregularly irregular Abdomen soft and nontender Extremities no edema Discharge Results Procedures and tests throughout hospitalization: Pending Orders 02/17/17 04:00 BMP w/ Mg [Basic Metabolic Panel w/Mg] IN AM Comp Blood Count Auto Diff IN AM Labs on day of discharge: Labs from last 24 hours 02/16/17 02/16/17 04:32 04:32 WBC 5.1 RBC 2.80 L Hgb 8.2 L Hct 25.0 L MCV 89.3 MCH 29 MCHC 32.8 RDW 15.5 Plt Count 165 MPV 10.6 Neut % (Auto) 75.3 H Lymph % (Auto) 14.0 L [place] % (Auto) 7.0 Eos % (Auto) 2.9 Baso % (Auto) 0.4 Neut # (Auto) 3.9 Lymph # (Auto) 0.7 L [place] # (Auto) 0.4 Eos # (Auto) 0.2 Baso # (Auto) 0.0 Immature Gran % 0.4 Nucleated RBC % 0.0 Immature Gran # 0.02 Nucleated RBCs # 0.00 Immature Plt Fraction 0.0 Sodium 142 Potassium 4.1 Chloride 108 H Carbon Dioxide 27 Anion Gap 11.1 BUN 8 Creatinine 1.00 GFR Calculation 91 BUN/Creatinine Ratio 8.00 Glucose 85 Calculated Osmolality 279.1 Calcium 8.4 L Magnesium 2.4 DS: Provider Date of admission: 02/12/17 10:16 Primary care physician: . No PCP Attending physician on admission: Britt Thompson MD Consults: 02/12/17 10:29 Consult to Physician [CONS] Routine Comment: gi bleed Consulting Provider: Matt Rose Consulting Provider Notified: Yes When should Consulting Provider be notified: Now Person Notified: Sue wooten Date Notified: 02/12/17 02/13/17 10:09 Consult to Physician [CONS] Routine Comment: active bleeding in ascending colono Consulting Provider: Bernardo Agosto When should Consulting Provider be notified: Now Discharging clinician: JONO Waters Expected date of discharge: 02/16/17
[2017-02-16 12:00] VITALS: BP 142/67
== END 2017-02-16 14:40 | disposition home or self-care (01) | DRG 378 ==
LOC: N.ED 09:12 → SUATTDRO 10:16 → N.EDINP 10:16 → N.3E 11:50 → N.ICU 02-13 12:59 → N.4E 02-15 14:51
PROVIDERS: ADMIT Internal Medicine; ATTEND Internal Medicine
PROC: IRAGMES (2017-02-14 09:35)

== ENCOUNTER 2018-06-18 12:07 | Observation (INO) ==
[2018-06-18] MEDS ORDERED: DOCUSATE SODIUM 100 MG CAPSULE PO PRN (15:08)
[2018-06-18] MEDS ORDERED: ONDANSETRON 4 MG/2 ML VIAL IV PRN (15:08)
[2018-06-18] MEDS ORDERED: LACTULOSE 20 GM/30 ML UDCUP PO PRN (15:08)
[2018-06-18 15:50] LABS: Basophils % 0.4 % (0.0-0.8); Eosinophils # 0.1 10*3/uL (0.0-0.87); Eosinophils % 4.7 % (0.00-10.9); Hematocrit 33.4 VOL% (42.0-52.0); Hemoglobin 10.4 GM/DL (14.0-18.0); Immature Granulocytes % 0.7 %; Immature Granulocytes Absolute 0.02 #; Lymphocytes # 0.6 10*3/uL (1.4-4.0); Lymphocytes % 22.8 % (21.2-54.2); Mean Corpuscular HGB Conc 31.1 GM/DL (32-36); Mean Corpuscular Hemoglobin 26 PG (27-34); Mean Corpuscular Volume 84.3 FL (87-102); Monocytes # 0.3 10*3/uL (0.11-0.8); Monocytes % 9.1 % (1.7-12.7); Neutrophils # 1.7 10*3/uL (1.4-7.4); Neutrophils % 62.3 % (38.7-73.9); Platelet Count 145 T/CUMM (130-400); Red Blood Count 3.96 MC/CUMM (3.8-5.5); Red Cell Distribution Width 15.6 % (9.3-17.3); White Blood Count 2.8 T/CUMM (4-12)
[2018-06-18 16:14] LABS: Albumin 3.8 G/DL (3.4-5.0); Bilirubin,Total 1.4 MG/DL (0.2-1.0); Calcium 9.2 MG/DL (8.5-10.1); Osmolality,Calculated 285.1 MOS/KG (273-304); Potassium 3.5 MMOL/L (3.5-5.1); Total Protein 7.3 G/DL (6.4-8.3)
[2018-06-18 16:15] LABS: CKMB % 0.8 %
[2018-06-18 16:27] LABS: Troponin I 0.927 NG/ML (0.00-0.045)
[2018-06-18] MEDS: POTASSIUM CHLORIDE 20 MEQ TABLET PO SCH (16:52)
[2018-06-18] MEDS: FUROSEMIDE 40 MG TABLET PO SCH (16:52)
[2018-06-18] MEDS: NITROGLYCERIN 2% OINT 1 INCH/GM PACK TOP SCH (18:04)
[2018-06-18] MEDS ORDERED: ENOXAPARIN 40 MG/0.4 ML SYRINGE SUBCUT SCH (21:00)
[2018-06-18] MEDS ORDERED: ATORVASTATIN 20 MG TABLET PO SCH (21:00)
[2018-06-19] MEDS: NITROGLYCERIN 2% OINT 1 INCH/GM PACK TOP SCH ×3 (00:42→12:06)
[2018-06-19 05:30] LABS: Basophils % 0.4 % (0.0-0.8); Eosinophils # 0.2 10*3/uL (0.0-0.87); Eosinophils % 5.9 % (0.00-10.9); Hematocrit 30.4 VOL% (42.0-52.0); Hemoglobin 9.4 GM/DL (14.0-18.0); Lymphocytes # 0.6 10*3/uL (1.4-4.0); Lymphocytes % 21.4 % (21.2-54.2); Mean Corpuscular HGB Conc 30.9 GM/DL (32-36); Mean Corpuscular Hemoglobin 26 PG (27-34); Mean Corpuscular Volume 84.4 FL (87-102); Mean Platelet Volume 11.7 FL (9.6-12.0); Monocytes # 0.3 10*3/uL (0.11-0.8); Monocytes % 9.6 % (1.7-12.7); Neutrophils # 1.7 10*3/uL (1.4-7.4); Neutrophils % 62.7 % (38.7-73.9); Platelet Count 141 T/CUMM (130-400); Red Cell Distribution Width 15.7 % (9.3-17.3); White Blood Count 2.7 T/CUMM (4-12)
[2018-06-19 06:11] LABS: Calcium 8.6 MG/DL (8.5-10.1); Osmolality,Calculated 288.8 MOS/KG (273-304); Potassium 3.3 MMOL/L (3.5-5.1); Risk Ratio 3.26; VLDL CHOLESTEROL 10.2 MG/DL
[2018-06-19] MEDS: POTASSIUM CHLORIDE 20 MEQ TABLET PO SCH (08:53)
[2018-06-19] MEDS: FUROSEMIDE 40 MG TABLET PO SCH (08:53)
[2018-06-19] MEDS ORDERED: LOSARTAN 50 MG TABLET PO SCH (09:00)
[2018-06-19] MEDS ORDERED: PANTOPRAZOLE 40 MG TABLET PO SCH (09:00)
[2018-06-19 11:57] VITALS: BP 135/92
[2018-06-19] MEDS ORDERED: POTASSIUM CHLORIDE 20 MEQ TABLET PO ONE (12:00)
[2018-06-19] MEDS ORDERED: FUROSEMIDE 40 MG TABLET PO SCH (21:00)
== END 2018-06-19 13:35 | disposition home or self-care (01) ==
LOC: N.5E → SUATTDRO 14:01
PROVIDERS: ADMIT Internal Medicine; ATTEND Hospitalist